=== PATIENT | male | born 1960 | race Caucasian/White ===

== ENCOUNTER → 2017-03-12 | Outpatient (CLI) | payer BC ==
[2017-03-12 13:45] LABS: CH 29.8; CHCM 33.4; HCT 43.4 % (39.0-53.0); HDW 2.64; HGB 14.3 gm/dL (13.0-17.5); MCH 29.5 pg (25.0-35.0); MCHC 32.9 g/dL (31.0-37.0); MCV 89.6 fL (80.0-100.0); Mean Platelet Volume 6.5; RBC 4.84 m/uL (4.30-5.90); RDW 13.3 % (11.5-15.5); WBC 8.5 k/uL (3.8-10.6)
[2017-03-12 14:05] LABS: ALT 46 U/L (21-72); AST 30 U/L (17-59); Alkaline Phosphatase 88 U/L (38-126); Anion Gap 10 mmol/L; Blood Urea Nitrogen 14 mg/dL (9-20); Calcium 9.5 mg/dL (8.4-10.2); Carbon Dioxide 26 mmol/L (22-30); Chloride 107 mmol/L (98-107); Glucose 82 mg/dL (74-99); Non-African American GFR(MDRD) >60 (>60 ml/min/1.73 sqM); Potassium 3.8 mmol/L (3.5-5.1); Sodium 143 mmol/L (137-145); Total Bilirubin 0.5 mg/dL (0.2-1.3); Total Protein 6.4 g/dL (6.3-8.2)
[2017-03-12 15:09] LABS: Erythrocyte Sedimentation Rate 8 mm/hr (0-15)
== END | disposition home or self-care (01) ==
LOC: LABWHC1 13:01
DX: K50.014 Crohn's disease of small intestine with abscess (principal); K50.00 Crohn's disease of small intestine without complications
CPT/HCPCS: 36415; 80053; 82306; 85027; 85652; 86140; 86480

== ENCOUNTER → 2017-04-08 | Outpatient (CLI) | payer BC ==
--- NOTE | 2017-04-08 21:23 | CT ---
EXAMINATION TYPE: CT chest w con DATE OF EXAM: 04/08/2017 COMPARISON: No previous exam available for correlation. HISTORY: Lung nodule. Hx of TB CT DLP: 291.7 mGycm Automated exposure control for dose reduction was used. CONTRAST: CT scan of the chest is performed with IV Contrast, patient injected with 90 mL of Omnipaque 300. FINDINGS: LUNGS: The left lower lobe, axial image 41 shows a soft tissue nodule measuring approximately 5 to 6 mm in size. MEDIASTINUM: There are no greater than 1 cm hilar or mediastinal lymph nodes. Pulmonary artery is dil ated measuring 2.7 cm. There are coronary artery calcifications. No pericardial effusion is seen. AORTA: Aortic root measuring approximately 3.9 cm is borderline aneurysmal. OTHER: Nonobstructive calculus present at the lower pole left kidney measures 7.5 cm. IMPRESSION: Indeterminate left lower lobe pulmonary nodule. Consider pulmonary artery hypertension. Borderline aneurysm aortic root, follow-up recommended. Nonobstructive left nephrolithiasis.
== END | disposition home or self-care (01) ==
LOC: RADCTMAIN 16:15
PROVIDERS: ATTEND Family Medicine
DX: R91.1 Solitary pulmonary nodule (principal); I27.2 Other secondary pulmonary hypertension
CPT/HCPCS: 71260; Q9967

== ENCOUNTER 2017-05-05 10:38 | Day surgery (SDC) | payer BC ==
[2017-05-02 09:22] VITALS: BMI 23.0
[~2017-05-05 10:38] MED LIST: LACTATED RINGERS 1,000 ML IV SCH
[2017-05-05 10:54] VITALS: TEMP 97.2
[2017-05-05] MEDS ORDERED: PROPOFOL 10 MG/ML 20 ML VIAL IV ONE (11:07)
[2017-05-05] MEDS ORDERED: LIDOCAINE 1% INJ 10MG/ML (20 ML MDV) ONE (11:07)
[2017-05-05] MEDS ORDERED: MIDAZOLAM 2 MG/2 ML VIAL ONE (11:07)
--- NOTE | 2017-05-05 11:47 | P.PCN ---
Date of Procedure: 05/05/17 Preoperative Diagnosis: Postoperative Diagnosis: Procedure(s) Performed: Procedure: Colonoscopy and biopsy. Preoperative diagnosis: History of Crohn's disease, S/P ileocecal cecotomy in January 2016. Postoperative diagnosis: Ulcerations at the anastomotic site with some degree of stenosis, colonoscopy, otherwise, within normal limits. Preparation: HalfLytely prep. Sedation: Was provided by anesthesia. Brief clinical history: The patient is a 56-year-old male with history of Crohn' s disease who had ileocecotomy in January 2016 for acute exacerbation and localized microperforation and abscess formation. The patient has been having some abdominal pain and more frequent loose stools. His last visit to the office was in February and he has been taking budesonide 9 mg daily because of pain and diarrhea. His CRP was elevated at 15. This evaluation is in anticipation of initiating biologic therapy. Procedure: With the patient on his left lateral decubitus position and after informed consent and adequate sedation, the perianal area was inspected and it did not show any fissures or fistulas. There were no masses felt on digital rectal examination. The Olympus CFQ 160L video colonoscope was then inserted in the rectum in the usual fashion and advanced to the right colon and the area of anastomosis with the small bowel. There was some degree of stenosis at the anastomotic site and multiple ulcerations. The colon did not show any obvious abnormalities. I obtained biopsies from the ulcerated area and the anastomotic site and I obtained pictures as well as random biopsies from the colon before the endoscope was withdrawn. The patient tolerated the procedure well. Plan: Will await pathology results and make further recommendations. I will keep you updated on his progress. Implants: Indications for Procedure: Operative Findings: Description of Procedure:
[2017-05-05 11:55] VITALS: BP 122/72; PULSE 62; RESP 18
== END 2017-05-05 12:14 | disposition home or self-care (01) ==
LOC: ORWHC2ENDO 10:38
DX: K51.80 Other ulcerative colitis without complications (principal); G62.9 Polyneuropathy, unspecified; M54.5 Low back pain; K91.89 Other postprocedural complications and disorders of digestive system; Y83.2 Surgical operation with anastomosis, bypass or graft as the cause of abnormal reaction of the patient, or of later complication, without mention of misadventure at the time of the procedure; Y73.8 Miscellaneous gastroenterology and urology devices associated with adverse incidents, not elsewhere classified; Z88.1 Allergy status to other antibiotic agents; Z79.899 Other long term (current) drug therapy; Z79.52 Long term (current) use of systemic steroids; Z90.49 Acquired absence of other specified parts of digestive tract
CPT/HCPCS: 88305; 45380; J2250; J2001; J2704

== ENCOUNTER 2017-05-10 18:31 | Observation (INO) | payer BC ==
--- NOTE | 2017-05-10 18:52 | ED ---
General Adult HPI - General Chief complaint: Chest Pain Stated complaint: not feeling well Time Seen by Provider: 05/10/17 18:35 Source: patient, RN notes reviewed Mode of arrival: ambulatory Limitations: no limitations - History of Present Illness Initial comments: Is a 56-year-old male who presents to the emergency department with chest pain that radiates to his neck since Friday. Patient states on Friday he started drinking for a colonoscopy on Friday and then he has chronically Friday without problem but the pain in his chest continues. Patient states it seems to radiate up into his neck and he feels the pain more when he turns his neck. Patient denies any shortness breath or difficulty breathing. Patient states 2 days ago he rode his bike 20 miles. Patient denies any recent fever chills or cough. Patient denies any recent nausea vomiting. Patient denies any headache patient denies numbness weakness. Patient denies any abdominal pain - Related Data Home Medications Medication Instructions Recorded Confirmed Gabapentin [Gabapentin] 900 mg PO HS 06/02/14 05/10/17 Acetaminophen Tab [Tylenol Tab] 1,000 mg PO Q6HR PRN 01/22/16 05/10/17 Budesonide [Budesonide EC] 9 mg PO QAM 05/02/17 05/10/17 Cetirizine HCl [Zyrtec] 10 mg PO DAILY PRN 05/02/17 05/10/17 Ibuprofen 200 mg PO Q6H PRN 05/02/17 05/10/17 Mesalamine [Pentasa] 2,000 mg PO BID 05/02/17 05/10/17 Naproxen Sodium [Aleve] 220 mg PO BID PRN 05/02/17 05/10/17 Allergies Allergy/AdvReac Type Severity Reaction Status Date / Time ciprofloxacin [From Cipro] AdvReac Severe Unknown Verified 05/10/17 18:52 ciprofloxacin HCl AdvReac Severe Unknown Verified 05/10/17 18:52 [From Cipro] levofloxacin [From Levaquin] AdvReac Severe Unknown Verified 05/10/17 18:52 Review of Systems ROS Statement: Those systems with pertinent positive or pertinent negative responses have been documented in the HPI. ROS Other: All systems not noted in ROS Statement are negative. Past Medical History Additional Past Medical History / Comment(s): Chron's dx involving terminal ileum with abscess, heart murmur, lower back pain with L leg sciatica-none since September 2015, lyme's disease, normocytic anemia, peripheral neuropathy History of Any Multi-Drug Resistant Organisms: None Reported Additional Past Surgical History / Comment(s): PICC line L upper arm for ABX, colonoscopies, EGD, vasectomy, L sided wisdom teeth extraction. Past Anesthesia/Blood Transfusion Reactions: No Reported Reaction Past Psychological History: No Psychological Hx Reported Smoking Status: Former smoker Past Alcohol Use History: Occasional, Rare Past Drug Use History: Marijuana - Past Family History Father Additional Family Medical History / Comment(s): Father has Chron's dx. Mother Family Medical History: Diabetes Mellitus, Thyroid Disorder Additional Family Medical History / Comment(s): Mother is pre-diabetic and has heart valve disease,bladder dysplasia General Exam - General Exam Comments Initial Comments: GENERAL: Patient is well-developed and well-nourished. Patient is nontoxic and well- hydrated and is in mild distress. ENT: Neck is soft and supple. No significant lymphadenopathy is noted. Oropharynx is clear. Moist mucous membranes. Neck has full range of motion without eliciting any pain. EYES: The sclera were anicteric and conjunctiva were pink and moist. Extraocular movements were intact and pupils were equal round and reactive to light. Eyelids were unremarkable. PULMONARY: Unlabored respirations. Good breath sounds bilaterally. No audible rales rhonchi or wheezing was noted. I do believe I palpate some tenderness air CARDIOVASCULAR: There is a regular rate and rhythm without any murmurs gallops or rubs. ABDOMEN: Soft and nontender with normal bowel sounds. SKIN: Skin is clear with no lesions or rashes and otherwise unremarkable. NEUROLOGIC: Patient is alert and oriented x3. Cranial nerves II through XII are grossly intact. Motor and sensory are also intact. Normal speech, volume and content. Symmetrical smile. MUSCULOSKELETAL: Normal extremities with adequate strength and full range of motion. No lower extremity swelling or edema. No calf tenderness. LYMPHATICS: No significant lymphadenopathy is noted PSYCHIATRIC: Normal psychiatric evaluation. Limitations: no limitations Course Vital Signs 05/10/17 05/10/17 18:34 19:58 Temperature 97.6 F Pulse Rate 65 61 Respiratory 18 16 Rate Blood Pressure 146/81 127/81 O2 Sat by Pulse 98 99 Oximetry Medical Decision Making - Medical Decision Making EKG shows normal sinus rhythm at 63 bpm VT interval 188 QRSs 84 Q-T intervals 36 QTC is 395. Patient's EKG shows some slight ST segment elevation in precordial leads V4 V5 and V6 looks like early repolarization. CT of the chest and neck showed no acute abnormality was no PE noted. - Lab Data Result diagrams: 05/10/17 19:05 05/10/17 19:05 Lab Results 05/10/17 05/10/17 05/10/17 Range/Units 19:05 19:05 19:05 WBC 7.8 (3.8-10.6) k/uL RBC 5.06 (4.30-5.90) m/uL Hgb 15.3 (13.0-17.5) gm/dL Hct 44.7 (39.0-53.0) % MCV 88.3 (80.0-100.0) fL MCH 30.3 (25.0-35.0) pg MCHC 34.3 (31.0-37.0) g/dL RDW 12.9 (11.5-15.5) % Plt Count 240 (150-450) k/uL Neutrophils % 75 % Lymphocytes % 18 % Monocytes % 4 % Eosinophils % 1 % Basophils % 0 % Neutrophils # 5.9 (1.3-7.7) k/uL Lymphocytes # 1.4 (1.0-4.8) k/uL Monocytes # 0.3 (0-1.0) k/uL Eosinophils # 0.1 (0-0.7) k/uL Basophils # 0.0 (0-0.2) k/uL PT (9.0-12.0) sec INR (<1.2) APTT (22.0-30.0) sec Sodium 143 (137-145) mmol/L Potassium 4.1 (3.5-5.1) mmol/L Chloride 104 (98-107) mmol/L Carbon Dioxide 29 (22-30) mmol/L Anion Gap 10 mmol/L BUN 15 (9-20) mg/dL Creatinine 0.90 (0.66-1.25) mg/dL Est GFR (MDRD) Af Amer >60 (>60 ml/min/1.73 sqM) Est GFR (MDRD) Non-Af >60 (>60 ml/min/1.73 sqM) Glucose 80 (74-99) mg/dL Calcium 9.7 (8.4-10.2) mg/dL Magnesium 2.0 (1.6-2.3) mg/dL Total Bilirubin 0.5 (0.2-1.3) mg/dL AST 22 (17-59) U/L ALT 28 (21-72) U/L Alkaline Phosphatase 84 (38-126) U/L Total Creatine Kinase 38 L (55-170) U/L CK-MB (CK-2) 0.7 (0.0-2.4) ng/mL CK-MB (CK-2) Rel Index 1.8 Troponin I <0.012 (0.000-0.034) ng/mL Total Protein 6.6 (6.3-8.2) g/dL Albumin 4.1 (3.5-5.0) g/dL 05/10/17 Range/Units 19:05 WBC (3.8-10.6) k/uL RBC (4.30-5.90) m/uL Hgb (13.0-17.5) gm/dL Hct (39.0-53.0) % MCV (80.0-100.0) fL MCH (25.0-35.0) pg MCHC (31.0-37.0) g/dL RDW (11.5-15.5) % Plt Count (150-450) k/uL Neutrophils % % Lymphocytes % % Monocytes % % Eosinophils % % Basophils % % Neutrophils # (1.3-7.7) k/uL Lymphocytes # (1.0-4.8) k/uL Monocytes # (0-1.0) k/uL Eosinophils # (0-0.7) k/uL Basophils # (0-0.2) k/uL PT 10.4 (9.0-12.0) sec INR 1.0 (<1.2) APTT 24.1 (22.0-30.0) sec Sodium (137-145) mmol/L Potassium (3.5-5.1) mmol/L Chloride (98-107) mmol/L Carbon Dioxide (22-30) mmol/L Anion Gap mmol/L BUN (9-20) mg/dL Creatinine (0.66-1.25) mg/dL Est GFR (MDRD) Af Amer (>60 ml/min/1.73 sqM) Est GFR (MDRD) Non-Af (>60 ml/min/1.73 sqM) Glucose (74-99) mg/dL Calcium (8.4-10.2) mg/dL Magnesium (1.6-2.3) mg/dL Total Bilirubin (0.2-1.3) mg/dL AST (17-59) U/L ALT (21-72) U/L Alkaline Phosphatase (38-126) U/L Total Creatine Kinase (55-170) U/L CK-MB (CK-2) (0.0-2.4) ng/mL CK-MB (CK-2) Rel Index Troponin I (0.000-0.034) ng/mL Total Protein (6.3-8.2) g/dL Albumin (3.5-5.0) g/dL Disposition Clinical Impression: Chest pain Disposition: ADMITTED IP TO THIS HOSP Referrals: Efra Edwards MD [Primary Care Provider] - 1-2 days Time of Disposition: 21:23
[2017-05-10 19:20] LABS: Basophils % (A) 0 %; CH 29.1; CHCM 33.1; Eosinophils # (A) 0.1 k/uL (0-0.7); Eosinophils % (A) 1 %; HCT 44.7 % (39.0-53.0); HDW 2.52; HGB 15.3 gm/dL (13.0-17.5); Luc # (Auto) 0.14; Luc % (Auto) 2; Lymphocytes # (A) 1.4 k/uL (1.0-4.8); Lymphocytes % (A) 18 %; MCH 30.3 pg (25.0-35.0); MCHC 34.3 g/dL (31.0-37.0); MCV 88.3 fL (80.0-100.0); Mean Platelet Volume 6.9; Monocytes # (A) 0.3 k/uL (0-1.0); Monocytes % (A) 4 %; Neutrophils # (A) 5.9 k/uL (1.3-7.7); Neutrophils % (A) 75 %; RBC 5.06 m/uL (4.30-5.90); RDW 12.9 % (11.5-15.5); WBC 7.8 k/uL (3.8-10.6); WBC (Perox) 7.59
[2017-05-10 19:32] LABS: Partial Thromboplastin Time 24.1 sec (22.0-30.0); Prothrombin Time 10.4 sec (9.0-12.0)
[2017-05-10 19:35] LABS: Creatine Kinase 38 U/L (55-170)
[2017-05-10 19:37] LABS: ALT 28 U/L (21-72); AST 22 U/L (17-59); Alkaline Phosphatase 84 U/L (38-126); Anion Gap 10 mmol/L; Blood Urea Nitrogen 15 mg/dL (9-20); Calcium 9.7 mg/dL (8.4-10.2); Carbon Dioxide 29 mmol/L (22-30); Chloride 104 mmol/L (98-107); Glucose 80 mg/dL (74-99); Non-African American GFR(MDRD) >60 (>60 ml/min/1.73 sqM); Potassium 4.1 mmol/L (3.5-5.1); Sodium 143 mmol/L (137-145); Total Bilirubin 0.5 mg/dL (0.2-1.3); Total Protein 6.6 g/dL (6.3-8.2)
--- NOTE | 2017-05-10 19:37 | XR ---
EXAMINATION TYPE: XR chest 2V DATE OF EXAM: 05/10/2017 COMPARISON: 12/08/[address] 04/08/2017 HISTORY: 56-year-old male with chest pain TECHNIQUE: PA and lateral views FINDINGS: The cardiomediastinal silhouette, aorta, and pulmonary vasculature are within normal limits. Some str ronel atelectasis in the lower lungs. Subtle nodular density at the left lower lung. No consolidation or pleural effusion. IMPRESSION: 1. No acute cardiopulmonary process. 2. A subtle nodular density in the left lower lung. This could represent nipple shadow or the small l eft lower lobe pulmonary nodules seen on 04/08/2017. Recommend five-month follow-up CT chest to reasse ss this nodule.
[2017-05-10 19:48] LABS: Creatine Kinase MB 0.7 ng/mL (0.0-2.4); Troponin I <0.012 ng/mL (0.000-0.034)
--- NOTE | 2017-05-10 19:58 | XR ---
EXAMINATION TYPE: XR soft tissue neck DATE OF EXAM: 05/10/2017 COMPARISON: NONE HISTORY: 56-year-old male with a pain TECHNIQUE: 2 views FINDINGS: The nasopharynx and oropharynx are patent. Epiglottis is normal. No retained radiopaque foreign body seen. No prevertebral soft tissue thickening. No obvious subglottic airway narrowing. IMPRESSION: No specific abnormality identified on the soft tissues of the neck.
[2017-05-10] MEDS ORDERED: RX INFO: IV CONTRAST WAS GIVEN 1 EACH MISC MISCELLANE PRN ×2 (20:03→20:07)
--- NOTE | 2017-05-10 21:06 | CT ---
EXAMINATION TYPE: CT soft tissue neck w con DATE OF EXAM: 05/10/2017 COMPARISON: NONE HISTORY: 56-year-old male with chest pain and neck pain starting 6 days ago when drinking colonoscopy prep. No known injury. Possible subcutaneous air. TECHNIQUE: Contiguous axial scanning of the soft tissues of the neck performed with IV Contrast, yakov ent injected with 100 mL of Omnipaque 300. Coronal/sagittal reconstructions performed. CT DLP: 174.90 mGycm Automated exposure control for dose reduction was used. FINDINGS: Visualized orbits and globes, intracranial structures, and mastoid air cells appear grossly unremarka ble. Cerumen within bilateral external auditory canals and trace mucosal thickening in the ethmoid ai r cells and right maxillary sinus. The nasopharynx is clear. There appears to be hypertrophy of the tubal tonsils in the upper oropharynx, axial image 42. Promine nt dental amalgam artifact limits clear visualization of portions of the oropharynx. The epiglottis and prevertebral soft tissues are normal. There is some asymmetric soft tissue effacing the left piriform sinus, axial image 71. Glottic and melchor bglottic structures as well as the tracheal column appear clear. There is a direct takeoff of the left vertebral artery directly from the aortic arch. The thyroid and submandibular glands as well as the parotid glands appear satisfactory. No subcutaneous air is seen. Solitary mildly enlarged 9 mm right submandibular space lymph node proba lyn reactive. Otherwise, no cervical lymphadenopathy seen. IMPRESSION: 1. THERE IS MILD HYPERTROPHY OF THE TUBAL TONSILS IN THE UPPER PHARYNX . 2. ASYMMETRIC SOFT TISSUE EFFACING THE LEFT PIRIFORM SINUS PROBABLY DUE TO MUCOSAL REDUNDANCY. CONSID ER ENT REFERRAL FOR DIRECT VISUALIZATION IN ORDER TO EXCLUDE A MUCOSAL LESION. 3. NO SUBCUTANEOUS AIR.
--- NOTE | 2017-05-10 21:13 | CT ---
EXAMINATION TYPE: CT angio chest DATE OF EXAM: 05/10/2017 COMPARISON: 04/08/2017 HISTORY: 56-year-old male with chest pain and neck pain starting 6 days ago when drinking colonoscopy prep. No known injury. Possible subcutaneous air. TECHNIQUE: Contiguous axial scanning of the chest performed with IV Contrast, patient injected with 1 00 mL of Omnipaque 300. Coronal/sagittal MIP reconstructions performed. CT DLP: 253.60 mGycm Automated exposure control for dose reduction was used. FINDINGS: The heart is normal size without pericardial effusion. Minimal coronary vascular calcifications are p resent. Ectatic ascending aorta 3.7 cm, unchanged. Variant direct takeoff of the left vertebral artery direct ly from the aortic arch. Satisfactory opacification of the pulmonary arterial system without evidence for pulmonary embolus. No pneumomediastinum or pneumothorax. No subcutaneous emphysema. No thoracic lymphadenopathy. Very mild bronchial wall thickening is noted. 6 mm posterior left lower lobe pulmonary nodule axial image 104 is unchanged from one month prior. De pendent areas of strandy atelectasis. No consolidation or pleural effusion. Visualized upper abdomen shows no gross abnormality. Bones: There is some degenerative vacuum phenomenon in the left sternoclavicular joint. Small superio r endplate Schmorl's nodes within the mid to lower thoracic spine. No osseous destructive process. IMPRESSION: 1. MILD BRONCHIAL WALL THICKENING COULD REPRESENT BRONCHITIS OR CHRONIC ASTHMA. 2. NO EVIDENCE FOR PULMONARY EMBOLUS. 3. THE 6 MM LEFT LOWER LOBE PULMONARY NODULE IS STABLE FOR ONE MONTH. THIS SHOULD BE FOLLOWED TO EXC LUDE A SMALL EARLY NEOPLASM.
[2017-05-10] MEDS ORDERED: NITROGLYCERIN SL TABS 0.4 MG TAB SUBLINGUAL PRN (21:23)
[2017-05-10 22:40] VITALS: BMI 23.0
[2017-05-10] MEDS ORDERED: GABAPENTIN 300 MG CAP PO SCH (23:15)
[2017-05-11] MEDS: NITROGLYCERIN OINT 1 INCH/GM PACKET TOPICAL SCH ×3 (01:37→12:07)
[2017-05-11 01:45] LABS: Creatine Kinase 32 U/L (55-170)
[2017-05-11 01:58] LABS: Creatine Kinase MB 0.6 ng/mL (0.0-2.4); Troponin I <0.012 ng/mL (0.000-0.034)
[2017-05-11 07:08] LABS: Cholesterol 154 mg/dL (<200); HDL Cholesterol 61 mg/dL (40-60)
[2017-05-11 07:15] VITALS: RESP 16
[2017-05-11 07:46] LABS: Creatine Kinase 30 U/L (55-170)
[2017-05-11 07:58] LABS: Creatine Kinase MB 0.4 ng/mL (0.0-2.4); Troponin I <0.012 ng/mL (0.000-0.034)
[2017-05-11] MEDS ORDERED: ASPIRIN 325 MG TAB PO SCH (09:00)
[2017-05-11 11:30] VITALS: BP 119/64; PULSE 67; TEMP 98.8
--- NOTE | 2017-05-11 13:02 | P.CRDCN ---
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 The patient was in his usual state of health until about a few days ago when he started experiencing chest discomfort, as a pressure across the chest, with radiation to the neck as well as to the jaw. The patient was ruled out for acute coronary event. The cardiac enzymes came in to be unremarkable. The EKG shows sinus rhythm with early repolarization. The patient normally is very active and he just was riding his bike for 20 miles without having any chest pain or discomfort. I recommended proceeding with a stress test to rule out any severe underlying CAD. The patient would like to be discharged home. Past Medical History Additional Past Medical History / Comment(s): Chrohn's dx involving terminal ileum with abscess, heart murmur, lower back pain with L leg sciatica-none since September 2015, lyme's disease, normocytic anemia, peripheral neuropathy History of Any Multi-Drug Resistant Organisms: None Reported Additional Past Surgical History / Comment(s): ileocecetomy with sepsis 2015, colonoscopies, EGD, vasectomy, L sided wisdom teeth extraction. Past Anesthesia/Blood Transfusion Reactions: No Reported Reaction Past Psychological History: No Psychological Hx Reported Additional Psychological History / Comment(s): Pt resides with his spouse and 3 daughters ages ranging from 12-17. He has a son in college. Pt is normally very independent. He uses no assistive device. He drives. Local [employer]. No current use of tobacco, alcohol or recreation drug use. No experience. No recent travels. No animal exposures. Smoking Status: Former smoker Past Alcohol Use History: Occasional, Rare Additional Past Alcohol Use History / Comment(s): Pt started smoking as a teen and quit in 1998. Past Drug Use History: Marijuana - Past Family History Father Additional Family Medical History / Comment(s): Father has Chron's dx. Mother Family Medical History: Diabetes Mellitus, Thyroid Disorder Additional Family Medical History / Comment(s): Mother is pre-diabetic and has heart valve disease,bladder dysplasia Medications and Allergies Home Medications Medication Instructions Recorded Confirmed Type Gabapentin [Gabapentin] 900 mg PO HS 06/02/14 05/10/17 History Acetaminophen Tab [Tylenol Tab] 1,000 mg PO Q6HR PRN 01/22/16 05/10/17 History Budesonide [Budesonide EC] 9 mg PO QAM 05/02/17 05/10/17 History Cetirizine HCl [Zyrtec] 10 mg PO DAILY PRN 05/02/17 05/10/17 History Ibuprofen 200 mg PO Q6H PRN 05/02/17 05/10/17 History Mesalamine [Pentasa] 2,000 mg PO BID 05/02/17 05/10/17 History Naproxen Sodium [Aleve] 220 mg PO BID PRN 05/02/17 05/10/17 History Allergies Allergy/AdvReac Type Severity Reaction Status Date / Time ciprofloxacin [From Cipro] AdvReac Severe Unknown Verified 05/10/17 18:52 ciprofloxacin HCl AdvReac Severe Unknown Verified 05/10/17 18:52 [From Cipro] levofloxacin [From Levaquin] AdvReac Severe Unknown Verified 05/10/17 18:52 Physical Exam Vitals: Vital Signs Temp Pulse Pulse Resp BP BP Pulse Ox 05/11/17 11:29 98.8 F 67 16 119/64 96 05/11/17 07:45 95 05/11/17 07:14 97.9 F 53 L 16 127/73 95 05/11/17 04:00 97.9 F 60 18 119/68 96 05/11/17 03:26 61 18 05/10/17 22:48 61 18 05/10/17 22:25 98 F 57 L 18 134/77 95 05/10/17 19:58 61 16 127/81 99 05/10/17 18:34 97.6 F 65 18 146/81 98 Intake and Output 05/10/17 05/11/17 05/11/17 22:59 06:59 14:59 Other: Voiding Method Toilet Toilet Toilet # Voids 3 Weight 68.5 kg - Constitutional General appearance: no acute distress - Respiratory Respiratory: bilateral: CTA - Cardiovascular Rhythm: regular Heart sounds: normal: S1, S2 Results 05/10/17 19:05 05/10/17 19:05 Cardiac Enzymes 05/10/17 05/10/17 05/11/17 Range/Units 19:05 19:05 01:01 AST 22 (17-59) U/L CK-MB (CK-2) 0.7 0.6 (0.0-2.4) ng/mL Troponin I <0.012 <0.012 (0.000-0.034) ng/mL 05/11/17 Range/Units 06:36 AST (17-59) U/L CK-MB (CK-2) 0.4 (0.0-2.4) ng/mL Troponin I <0.012 (0.000-0.034) ng/mL Coagulation 05/10/17 Range/Units 19:05 PT 10.4 (9.0-12.0) sec APTT 24.1 (22.0-30.0) sec Lipids 05/11/17 Range/Units 06:36 Triglycerides 173 H (<150) mg/dL Cholesterol 154 (<200) mg/dL HDL Cholesterol 61 H (40-60) mg/dL CBC 05/10/17 Range/Units 19:05 WBC 7.8 (3.8-10.6) k/uL RBC 5.06 (4.30-5.90) m/uL Hgb 15.3 (13.0-17.5) gm/dL Hct 44.7 (39.0-53.0) % Plt Count 240 (150-450) k/uL Comprehensive Metabolic Panel 05/10/17 Range/Units 19:05 Sodium 143 (137-145) mmol/L Potassium 4.1 (3.5-5.1) mmol/L Chloride 104 (98-107) mmol/L Carbon Dioxide 29 (22-30) mmol/L BUN 15 (9-20) mg/dL Creatinine 0.90 (0.66-1.25) mg/dL Glucose 80 (74-99) mg/dL Calcium 9.7 (8.4-10.2) mg/dL AST 22 (17-59) U/L ALT 28 (21-72) U/L Alkaline Phosphatase 84 (38-126) U/L Total Protein 6.6 (6.3-8.2) g/dL Albumin 4.1 (3.5-5.0) g/dL Current Medications Generic Name Dose Route Start Last Admin Trade Name Freq PRN Reason Stop Dose Admin Aspirin 325 mg 05/11/17 09:00 05/11/17 12:07 Aspirin PO Not Given DAILY ANA CRISTINA Gabapentin 900 mg 05/10/17 23:15 05/11/17 01:55 Neurontin PO 900 mg HS ANA CRISTINA Administration Miscellaneous Information 1 each 05/10/17 20:03 Rx Info: Iv Contrast Was Given MISCELLANE 05/12/17 20:03 DAILY PRN Per Protocol Miscellaneous Information 1 each 05/10/17 20:07 Rx Info: Iv Contrast Was Given MISCELLANE 05/12/17 20:07 DAILY PRN Per Protocol Nitroglycerin 1 inch 05/11/17 00:00 05/11/17 12:07 Nitro-Bid Oint TOPICAL Not Given Q6HR [facility] Nitroglycerin 0.4 mg 05/10/17 21:23 Nitrostat SUBLINGUAL Q5M PRN Chest Pain Intake and Output 05/10/17 05/11/17 05/11/17 22:59 06:59 14:59 Other: Voiding Method Toilet Toilet Toilet # Voids 3 Weight 68.5 kg 05/10/17 19:05 05/10/17 19:05 Assessment and Plan Plan: This is a pleasant 56-year-old gentleman who presented to the hospital was atypical chest discomfort. Normally the patient is very active and with exertion he does not have any chest pain or discomfort. He was ruled out for acute coronary event. I recommended proceeding with a stress test but the patient would like to be discharged home. He will be scheduled to have a stress test as an outpatient in the next few days.
--- NOTE | 2017-05-11 15:40 | P.HPIM ---
History of Present Illness -year-old man came in with Complaints of constant chest pain has been going on for last few days appears to be musculoskeletal. It appears to worsen with neck movement patient back pain is predominantly in the neck area appears to have some neck stiffness. Patient also appears to have sore throat with redness in the throat area. CAT scan of the soft tissues of the neck did show some soft tissue swelling. On exam patient does have redness in the posterior pharyngeal wall with mildly enlarged tonsils. Mostly ALLERGIC or viral in nature. Patient denied any cough at this time. Patient denied any fever chills patient the pain in the neck area is about 5 or 10 and severe. Patient was admitted for rule out acute coronary syndromes was a valid by cardiology EKGs were negative and troponins were negative. Patient was cleared from cardiac perspective and follow up as an outpatient for outpatient stress test. Patient had a CT angios the neck which did not show any pulmonary embolism. Patient had a stable 6 mm pulmonary nodule which need to be followed. It is stable compared to the chest CT that was done about a month ago. Patient was made aware of these findings. Patient does have some bronchial thickening. Review of Systems REVIEW OF SYSTEMS: CONSTITUTIONAL: No fever, no malaise, no fatigue. HEENT: No recent visual problems or hearing problems. Does have sore throat and some stiffness in the neck. CARDIOVASCULAR: No, orthopnea, PND, no palpitations, no syncope. PULMONARY: No shortness of breath, no cough, no hemoptysis. GASTROINTESTINAL: No diarrhea, no nausea, no vomiting, no abdominal pain. Normoactive bowel sounds. NEUROLOGICAL: No headaches, no weakness, no numbness. HEMATOLOGICAL: Denies any bleeding or petechiae. GENITOURINARY: Denies any burning micturition, frequency, or urgency. MUSCULOSKELETAL/RHEUMATOLOGICAL: Denies any joint pain, swelling, or any muscle pain. ENDOCRINE: Denies any polyuria or polydipsia. The rest of the 14-point review of systems is negative. Past Medical History Additional Past Medical History / Comment(s): Chrohn's dx involving terminal ileum with abscess, heart murmur, lower back pain with L leg sciatica-none since September 2015, lyme's disease, normocytic anemia, peripheral neuropathy History of Any Multi-Drug Resistant Organisms: None Reported Additional Past Surgical History / Comment(s): ileocecetomy with sepsis 2016, colonoscopies, EGD, vasectomy, L sided wisdom teeth extraction. Past Anesthesia/Blood Transfusion Reactions: No Reported Reaction Past Psychological History: No Psychological Hx Reported Additional Psychological History / Comment(s): Pt resides with his spouse and 3 daughters ages ranging from 12-17. He has a son in college. Pt is normally very independent. He uses no assistive device. He drives. Local college sports assistant. No current use of tobacco, alcohol or recreation drug use. No experience. No recent travels. No animal exposures. Smoking Status: Former smoker Past Alcohol Use History: Occasional, Rare Additional Past Alcohol Use History / Comment(s): Pt started smoking as a teen and quit in 1998. Past Drug Use History: Marijuana - Past Family History Father Additional Family Medical History / Comment(s): Father has Chron's dx. Mother Family Medical History: Diabetes Mellitus, Thyroid Disorder Additional Family Medical History / Comment(s): Mother is pre-diabetic and has heart valve disease,bladder dysplasia Medications and Allergies Home Medications Medication Instructions Recorded Confirmed Type Gabapentin [Gabapentin] 900 mg PO HS 06/02/14 05/10/17 History Acetaminophen Tab [Tylenol Tab] 1,000 mg PO Q6HR PRN 01/22/16 05/10/17 History Budesonide [Budesonide EC] 9 mg PO QAM 05/02/17 05/10/17 History Cetirizine HCl [Zyrtec] 10 mg PO DAILY PRN 05/02/17 05/10/17 History Ibuprofen 200 mg PO Q6H PRN 05/02/17 05/10/17 History Mesalamine [Pentasa] 2,000 mg PO BID 05/02/17 05/10/17 History Naproxen Sodium [Aleve] 220 mg PO BID PRN 05/02/17 05/10/17 History Allergies Allergy/AdvReac Type Severity Reaction Status Date / Time ciprofloxacin [From Cipro] AdvReac Severe Unknown Verified 05/10/17 18:52 ciprofloxacin HCl AdvReac Severe Unknown Verified 05/10/17 18:52 [From Cipro] levofloxacin [From Levaquin] AdvReac Severe Unknown Verified 05/10/17 18:52 Physical Exam Vitals: Vital Signs Temp Pulse Pulse Resp BP BP Pulse Ox 05/11/17 11:29 98.8 F 67 16 119/64 96 08/13/17 07:45 95 05/11/17 07:14 97.9 F 53 L 16 127/73 95 05/11/17 04:00 97.9 F 60 18 119/68 96 05/11/17 03:26 61 18 05/10/17 22:48 61 18 05/10/17 22:25 98 F 57 L 18 134/77 95 05/10/17 19:58 61 16 127/81 99 05/10/17 18:34 97.6 F 65 18 146/81 98 Intake and Output 05/11/17 05/11/17 05/11/17 06:59 14:59 22:59 Intake Total 236 Balance 236 Intake: Oral 236 Other: Voiding Method Toilet Toilet # Voids 3 PHYSICAL EXAMINATION: GENERAL: The patient is alert and oriented x3, not in any acute distress. Well developed, well nourished. HEENT: Pupils are round and equally reacting to light. EOMI. No scleral icterus. No conjunctival pallor. Normocephalic, atraumatic. Patient does have posterior pharyngeal erythema. No thyromegaly. CARDIOVASCULAR: S1 and S2 present. No murmurs, rubs, or gallops. PULMONARY: Chest is clear to auscultation, no wheezing or crackles. ABDOMEN: Soft, nontender, nondistended, normoactive bowel sounds. No palpable organomegaly. MUSCULOSKELETAL: No joint swelling or deformity. EXTREMITIES: No cyanosis, clubbing, or pedal edema. NEUROLOGICAL: Gross neurological examination did not reveal any focal deficits. SKIN: No rashes. Results CBC & Chem 7: 05/10/17 19:05 05/10/17 19:05 Labs: Abnormal Lab Results - Last 24 Hours (Table) 05/10/17 05/11/17 05/11/17 Range/Units 19:05 01:01 06:36 Total Creatine Kinase 38 L 32 L 30 L (55-170) U/L Triglycerides (<150) mg/dL HDL Cholesterol (40-60) mg/dL 05/11/17 Range/Units 06:36 Total Creatine Kinase (55-170) U/L Triglycerides 173 H (<150) mg/dL HDL Cholesterol 61 H (40-60) mg/dL Thrombosis Risk Factor Assmnt - Choose All That Apply Each Factor Represents 1 point: Age 41-60 years Thrombosis Risk Factor Assessment Total Risk Factor Score: 1 Thrombosis Risk Factor Assessment Level: Low Risk Assessment and Plan Plan: Chest pain: Appears to be musculoskeletal in nature coming from the neck area. Ruled out acute coronary syndromes and unstable angina patient will follow with Dr. Bustamante for outpatient stress test. #2 pharyngitis viral or ALLERGIC in nature. If patient can he is to have the symptoms patient need antibiotics at that time. #3 musculoskeletal neck pain and stiffness: Heart or cold compresses. And it nonsteroidal anti-inflammatories as as necessary. #4 history of Crohn's disease not in acute exacerbation at this time.
--- NOTE | 2017-05-11 15:41 | P.DS ---
Providers Date of admission: 05/10/17 21:23 Attending physician: Devaughn Loo Consults: 05/10/17 21:24 Consult Physician Urgent Consulting Provider: [facility] Consult Reason/Comments: Chest pain Do you want consulting provider notified?: Yes Primary care physician: Efra Edwards Hospital Course: Refer to HPI Plan - Discharge Summary New Discharge Prescriptions: No Action Gabapentin [Gabapentin] 900 mg PO HS Acetaminophen Tab [Tylenol Tab] 1,000 mg PO Q6HR PRN PRN Reason: Pain Mesalamine [Pentasa] 2,000 mg PO BID Cetirizine HCl [Zyrtec] 10 mg PO DAILY PRN PRN Reason: Allergy Symptoms Budesonide [Budesonide EC] 9 mg PO QAM Naproxen Sodium [Aleve] 220 mg PO BID PRN PRN Reason: Pain Ibuprofen 200 mg PO Q6H PRN PRN Reason: Pain Discharge Medication List Gabapentin [Gabapentin] 900 mg PO HS 06/02/14 [History] Acetaminophen Tab [Tylenol Tab] 1,000 mg PO Q6HR PRN 01/22/16 [History] Budesonide [Budesonide EC] 9 mg PO QAM 05/02/17 [History] Cetirizine HCl [Zyrtec] 10 mg PO DAILY PRN 05/02/17 [History] Ibuprofen 200 mg PO Q6H PRN 05/02/17 [History] Mesalamine [Pentasa] 2,000 mg PO BID 05/02/17 [History] Naproxen Sodium [Aleve] 220 mg PO BID PRN 05/02/17 [History] Follow up Appointment(s)/Referral(s): Toribio Bustamante MD [STAFF PHYSICIAN] - 1 Week (Message left with office to call you to schedule an appointment with Dr. Bustamante) Ronni Bell DO [Doctor of Osteopathic Medicine] - 1 Week (Referral for ENT services. Patient to call office to make an appointment) Efra Edwards MD [Primary Care Provider] - 3 Days Sumaya Nicole MD [STAFF PHYSICIAN] - 1 Week Patient Instructions/Handouts: Chest Pain (GEN) Discharge Disposition: HOME SELF-CARE
== END 2017-05-11 14:11 | disposition home or self-care (01) ==
LOC: EC 18:31 → 3OBS 21:23
PROVIDERS: ADMIT Hospitalist; ATTEND Hospitalist
DX: R07.89 Other chest pain (principal); J02.9 Acute pharyngitis, unspecified; M54.2 Cervicalgia; K50.00 Crohn's disease of small intestine without complications; G62.9 Polyneuropathy, unspecified; Z79.899 Other long term (current) drug therapy; Z79.1 Long term (current) use of non-steroidal anti-inflammatories (NSAID); Z79.52 Long term (current) use of systemic steroids; Z88.1 Allergy status to other antibiotic agents; Z87.891 Personal history of nicotine dependence; Z83.3 Family history of diabetes mellitus
CPT/HCPCS: 99285; 36415; 94760; 93005; 80061; 80053; 82550 ×2; 82553 ×2; 83735; 84484 ×2; 85025; 85610; 85730; 70360; 71020; 70491; 71275; G0378 ×2; Q9967

== ENCOUNTER → 2018-02-05 | Outpatient (CLI) | payer BC ==
[2018-02-05 09:42] LABS: HCT 40.3 % (39.0-53.0); HGB 13.7 gm/dL (13.0-17.5); MCH 29.3 pg (25.0-35.0); MCHC 34.1 g/dL (31.0-37.0); MCV 85.9 fL (80.0-100.0); Mean Platelet Volume 6.6; Platelet Count 227 k/uL (150-450); RBC 4.69 m/uL (4.30-5.90); RDW 13.4 % (11.5-15.5); WBC 7.2 k/uL (3.8-10.6)
[2018-02-05 09:58] LABS: ALT 19 U/L (21-72); AST 21 U/L (17-59); Albumin 3.8 g/dL (3.5-5.0); Alkaline Phosphatase 77 U/L (38-126); Anion Gap 13 mmol/L; Blood Urea Nitrogen 18 mg/dL (9-20); C Reactive Protein 11.7 mg/L (<10.0); Calcium 9.5 mg/dL (8.4-10.2); Carbon Dioxide 25 mmol/L (22-30); Chloride 109 mmol/L (98-107); Glucose 68 mg/dL (74-99); Potassium 4.2 mmol/L (3.5-5.1); Sodium 147 mmol/L (137-145); Total Bilirubin 0.4 mg/dL (0.2-1.3); Total Protein 6.1 g/dL (6.3-8.2)
[2018-02-05 10:27] LABS: Erythrocyte Sedimentation Rate 9 mm/hr (0-15)
== END | disposition home or self-care (01) ==
LOC: LABWHC1 08:52
DX: K50.90 Crohn's disease, unspecified, without complications (principal)
CPT/HCPCS: 36415; 80053; 82306; 85027; 85652; 86140

== ENCOUNTER → 2018-04-16 | Outpatient (CLI) | payer BC ==
[2018-04-16 10:26] LABS: HCT 45.7 % (39.0-53.0); HGB 15.2 gm/dL (13.0-17.5); MCH 29.7 pg (25.0-35.0); MCHC 33.2 g/dL (31.0-37.0); MCV 89.3 fL (80.0-100.0); Mean Platelet Volume 6.8; Platelet Count 237 k/uL (150-450); RBC 5.12 m/uL (4.30-5.90); RDW 13.4 % (11.5-15.5); WBC 6.8 k/uL (3.8-10.6)
[2018-04-16 10:45] LABS: ALT 30 U/L (21-72); AST 23 U/L (17-59); Albumin 4.2 g/dL (3.5-5.0); Alkaline Phosphatase 63 U/L (38-126); Anion Gap 6 mmol/L; Blood Urea Nitrogen 20 mg/dL (9-20); C Reactive Protein <5.0 mg/L (<10.0); Calcium 9.6 mg/dL (8.4-10.2); Carbon Dioxide 30 mmol/L (22-30); Chloride 107 mmol/L (98-107); Glucose 90 mg/dL (74-99); Potassium 4.6 mmol/L (3.5-5.1); Sodium 143 mmol/L (137-145); Total Bilirubin 0.6 mg/dL (0.2-1.3); Total Protein 6.5 g/dL (6.3-8.2)
[2018-04-16 14:10] LABS: Erythrocyte Sedimentation Rate 2 mm/hr (0-15)
[2018-04-16 16:26] LABS: Vitamin D 25 Hydroxy 43.2 ng/mL (30.0-100.0)
[2018-04-16 16:32] LABS: Folate, Serum 12.4 ng/mL
== END | disposition home or self-care (01) ==
LOC: LABWHC1 09:42
DX: K50.90 Crohn's disease, unspecified, without complications (principal)
CPT/HCPCS: 36415; 80053; 82306; 82607; 82746; 85027; 85652; 86140

== ENCOUNTER → 2018-11-05 | Outpatient (CLI) | payer BC ==
[2018-11-05 11:02] LABS: HCT 43.7 % (39.0-53.0); HGB 14.5 gm/dL (13.0-17.5); MCH 30.1 pg (25.0-35.0); MCHC 33.3 g/dL (31.0-37.0); MCV 90.4 fL (80.0-100.0); Mean Platelet Volume 6.5; Platelet Count 259 k/uL (150-450); RBC 4.83 m/uL (4.30-5.90); RDW 13.1 % (11.5-15.5); WBC 8.2 k/uL (3.8-10.6)
[2018-11-05 12:56] LABS: Erythrocyte Sedimentation Rate 2 mm/hr (0-15)
[2018-11-05 16:36] LABS: ALT 28 U/L (10-49); AST 22 U/L (14-35); Albumin/Globulin Ratio 2.37 (1.60-3.17); Alkaline Phosphatase 75 U/L (41-126); C Reactive Protein <0.4 mg/dL (0.0-0.8); Calcium 9.2 mg/dL (8.7-10.3); Carbon Dioxide 27.1 mmol/L (21.6-31.8); Chloride 109 mmol/L (96-109); Globulin 1.9 g/dL (1.6-3.3); Glucose 89 mg/dL (70-110); Potassium 3.8 mmol/L (3.5-5.5); Sodium 144 mmol/L (135-145); Total Bilirubin 0.6 mg/dL (0.3-1.2); Total Protein 6.4 g/dL (6.2-8.2)
[2018-11-05 16:37] LABS: Folate, Serum >24.0 ng/mL; Vitamin D 25 Hydroxy 34.2 ng/mL (30.0-100.0)
== END | disposition home or self-care (01) ==
LOC: LABWHC1 09:54
DX: K50.90 Crohn's disease, unspecified, without complications (principal)
CPT/HCPCS: 36415; 80053; 82306; 82607; 82746; 85027; 85652; 86140

== ENCOUNTER → 2018-11-16 | Outpatient (CLI) | payer BC | END | disposition home or self-care (01) | LOC: LABWHC1 11:01 | DX: K50.90 Crohn's disease, unspecified, without complications (principal) | CPT/HCPCS: 83993; 87045; 87046; 87324 ==

== ENCOUNTER → 2019-07-28 | Outpatient (CLI) | payer BC ==
--- NOTE | 2019-07-28 14:39 | NM ---
EXAMINATION TYPE: NM bone scan whole body DATE OF EXAM: 07/28/2019 COMPARISON: NONE HISTORY: Low back pain Delayed whole-body scanning was performed following the injection of 24.8 mCi Tc 99m MDP. Images acq uired 3.5 hours post injection. FINDINGS: Faint abnormal uptake throughout the thoracic spine and lower lumbar spine. Slightly asymmetric lucen t appearance of the right femoral neck. IMPRESSION: 1. No diagnostic evidence of metastasis. Slight heterogeneity of the right femoral neck and proximal diaphysis of the right femur for which x-ray correlation is recommended. 2. Findings involving the thoracic and lower lumbar spine likely degenerative.
== END | disposition home or self-care (01) ==
LOC: RADNMMAIN 10:20
PROVIDERS: ATTEND Family Medicine
DX: M54.5 Low back pain (principal)
CPT/HCPCS: 78306; A9503

== ENCOUNTER → 2019-08-02 | Outpatient (CLI) | payer BC ==
--- NOTE | 2019-08-02 10:19 | US ---
EXAMINATION TYPE: US kidneys/renal and bladder DATE OF EXAM: 08/02/2019 COMPARISON: NONE CLINICAL HISTORY: D49.519 Neoplasm of unspecified behavior of unspec. EXAM MEASUREMENTS: Right Kidney: 10.4 x 6.6 x 5.5 cm Left Kidney: 10.4 x 6.1 x 4.9 cm Right Kidney: inferior cyst noted measuring 2.3 x 2.0 x 1.9cm, 2 echogenic foci measuring 0.4 x 0.2 x 0.6cm and 0.3 x 0.3 x 0.5cm Left Kidney:echogenic foci measuring 0.4 x 0.4 x 0.2cm Bladder: wnl IMPRESSION: 1. Nonobstructing bilateral renal calculi. 2. Right renal simple cyst.
== END | disposition home or self-care (01) ==
LOC: RADUSMAIN 08:54
PROVIDERS: ATTEND Family Medicine
DX: N20.0 Calculus of kidney (principal); N28.1 Cyst of kidney, acquired
CPT/HCPCS: 76770

== ENCOUNTER 2019-12-01 13:28 | Emergency (ER) | payer BC ==
--- NOTE | 2019-12-01 13:32 | US ---
EXAMINATION TYPE: US kidneys/renal and bladder DATE OF EXAM: 12/01/2019 COMPARISON: US 08/02/2019 CLINICAL HISTORY: N20.2 Calculus of kidney and ureter. EXAM MEASUREMENTS: Right Kidney: 9.9 x 6.0 x 5.5 cm Left Kidney: 9.5 x 4.6 x 4.4 cm Right Kidney: Hydronephrosis visualized. Echogenic foci visualized measuring 0.6 cm. Simple cyst visu alized measuring 2.1 x 1.7 x 1.4 cm stable from prior exam. Left Kidney: No hydronephrosis or nephrolithiasis Bladder: wnl Bilateral Jets seen: No IMPRESSION: Mild to moderate right hydronephrosis with 6 mm right renal calculus. Ureteral calculus would be in t he differential diagnosis.
[2019-12-01 13:34] VITALS: RESP 18
[2019-12-01 14:17] LABS: Basophils # (A) 0.1 k/uL (0-0.2); Basophils % (A) 1 %; Eosinophils # (A) 0.2 k/uL (0-0.7); Eosinophils % (A) 2 %; HCT 50.1 % (39.0-53.0); HGB 16.4 gm/dL (13.0-17.5); Lymphocytes # (A) 2.7 k/uL (1.0-4.8); Lymphocytes % (A) 28 %; MCH 29.6 pg (25.0-35.0); MCHC 32.8 g/dL (31.0-37.0); MCV 90.3 fL (80.0-100.0); Mean Platelet Volume 6.8; Monocytes # (A) 0.5 k/uL (0-1.0); Monocytes % (A) 5 %; Neutrophils # (A) 6.1 k/uL (1.3-7.7); Neutrophils % (A) 63 %; Platelet Count 253 k/uL (150-450); RBC 5.55 m/uL (4.30-5.90); RDW 12.3 % (11.5-15.5); WBC 9.7 k/uL (3.8-10.6)
[2019-12-01 14:19] LABS: Appearance,Urine Clear (Clear); Bilirubin,Urine Negative (Negative); Blood,Urine Moderate (Negative); Color,Urine Light Yellow; Glucose,Urine (UA) Negative (Negative); Ketones,Urine Negative (Negative); Leukocyte Esterase,Urine Negative (Negative); Mucus,Urine Rare /hpf; Nitrite,Urine Negative (Negative); Protein,Urine Negative (Negative); RBC,Urine 33 /hpf (0-5); Urobilinogen,Urine <2.0 mg/dL (<2.0); WBC,Urine 1 /hpf (0-5)
[2019-12-01 14:31] LABS: ALT 25 U/L (4-49); AST 32 U/L (17-59); African American GFR (CKD) >90 (>60 ml/min/1.73 sqM); Alkaline Phosphatase 68 U/L (38-126); Anion Gap 10 mmol/L; Blood Urea Nitrogen 13 mg/dL (9-20); Calcium 10.1 mg/dL (8.4-10.2); Carbon Dioxide 27 mmol/L (22-30); Chloride 103 mmol/L (98-107); Glucose 98 mg/dL (74-99); Non-African American GFR(CKD) 86 (>60 ml/min/1.73 sqM); Potassium 4.3 mmol/L (3.5-5.1); Sodium 140 mmol/L (137-145); Total Bilirubin 1.5 mg/dL (0.2-1.3)
[2019-12-01] MEDS ORDERED: KETOROLAC 30 MG/ML 1 ML VIAL IVP STA (14:40)
[2019-12-01] MEDS ORDERED: SODIUM CHLORIDE 0.9% 1,000 ML IV ONE (15:03)
[2019-12-01] MEDS ORDERED: ONDANSETRON 4 MG/2 ML VIAL IVP STA (15:03)
[2019-12-01] MEDS ORDERED: HYDROcodone/APAP 7.5-325MG 1 EACH TAB PO ONE (16:03)
--- NOTE | 2019-12-01 16:32 | ED ---
Abdominal Pain HPI - General Chief Complaint: Abdominal Pain Stated Complaint: Kidney Stones Time Seen by Provider: 12/01/19 14:39 Source: patient Mode of arrival: ambulatory Limitations: no limitations - History of Present Illness Initial Comments: 59-year-old male with history of kidney stones presenting today for chief complaint of right flank pain. Patient states that he has history of kidney stones and mild right flank pain for the past 24-48 hours hours. States last night intensified he states he was nauseous. Patient states he noted hematuria. Patient was seen in outpatient and prescribed Flomax. Patient stated outpatient Ultram today revealing findings suspicious for urolithiasis. No obvious obstructing stone. Patient is mild to moderate hydronephrosis. Patient's creatinine within normal limits patient is a not have any significant leukocytosis. No signs in the urinalysis concerning for infection or septic stone at this time. Patient is afebrile well-appearing nontoxic pain control with Toradol and Thompson. This time I feel patient is safe for discharge with outpatient neurology follow-up and continuation of Flomax. Discussed the case with any provider reviewing imaging studies with Dr. Hardin who is agreeable to this care plan. - Related Data Home Medications Medication Instructions Recorded Confirmed Gabapentin 900 mg PO HS 06/02/14 05/10/17 Acetaminophen Tab [Tylenol Tab] 1,000 mg PO Q6HR PRN 01/22/16 05/10/17 Budesonide [Budesonide EC] 9 mg PO QAM 05/02/17 05/10/17 Cetirizine HCl [Zyrtec] 10 mg PO DAILY PRN 05/02/17 05/10/17 Ibuprofen 200 mg PO Q6H PRN 05/02/17 05/10/17 Mesalamine [Pentasa] 2,000 mg PO BID 05/02/17 05/10/17 Naproxen Sodium [Aleve] 220 mg PO BID PRN 05/02/17 05/10/17 Allergies Allergy/AdvReac Type Severity Reaction Status Date / Time ciprofloxacin [From Cipro] AdvReac Severe Unknown Verified 12/01/19 13:34 ciprofloxacin HCl AdvReac Severe Unknown Verified 12/01/19 13:34 [From Cipro] levofloxacin [From Levaquin] AdvReac Severe Unknown Verified 12/01/19 13:34 Review of Systems ROS Statement: Those systems with pertinent positive or pertinent negative responses have been documented in the HPI. ROS Other: All systems not noted in ROS Statement are negative. Past Medical History Additional Past Medical History / Comment(s): Chrohn's dx involving terminal ileum with abscess, heart murmur, lower back pain with L leg sciatica-none since September 2015, lyme's disease, normocytic anemia, peripheral neuropathy, renal stones, History of Any Multi-Drug Resistant Organisms: None Reported Additional Past Surgical History / Comment(s): ileocecetomy with sepsis 2016, colonoscopies, EGD, vasectomy, L sided wisdom teeth extraction. right shoulder, Past Anesthesia/Blood Transfusion Reactions: No Reported Reaction Past Psychological History: No Psychological Hx Reported Smoking Status: Former smoker Past Alcohol Use History: Rare Past Drug Use History: Marijuana - Past Family History Father Additional Family Medical History / Comment(s): Father has Chron's dx. Mother Family Medical History: Diabetes Mellitus, Thyroid Disorder Additional Family Medical History / Comment(s): Mother is pre-diabetic and has heart valve disease,bladder dysplasia General Exam Limitations: no limitations Course Vital Signs 12/01/19 12/01/19 13:30 16:33 Temperature 97.3 F L 97.4 F L Pulse Rate 85 74 Respiratory 18 18 Rate Blood Pressure 157/88 126/84 O2 Sat by Pulse 97 98 Oximetry Medical Decision Making - Lab Data Result diagrams: 12/01/19 14:00 12/01/19 14:00 Lab Results 12/01/19 12/01/19 12/01/19 Range/Units 13:50 14:00 14:00 WBC 9.7 (3.8-10.6) k/uL RBC 5.55 (4.30-5.90) m/uL Hgb 16.4 (13.0-17.5) gm/dL Hct 50.1 (39.0-53.0) % MCV 90.3 (80.0-100.0) fL MCH 29.6 (25.0-35.0) pg MCHC 32.8 (31.0-37.0) g/dL RDW 12.3 (11.5-15.5) % Plt Count 253 (150-450) k/uL Neutrophils % 63 % Lymphocytes % 28 % Monocytes % 5 % Eosinophils % 2 % Basophils % 1 % Neutrophils # 6.1 (1.3-7.7) k/uL Lymphocytes # 2.7 (1.0-4.8) k/uL Monocytes # 0.5 (0-1.0) k/uL Eosinophils # 0.2 (0-0.7) k/uL Basophils # 0.1 (0-0.2) k/uL Sodium 140 (137-145) mmol/L Potassium 4.3 (3.5-5.1) mmol/L Chloride 103 (98-107) mmol/L Carbon Dioxide 27 (22-30) mmol/L Anion Gap 10 mmol/L BUN 13 (9-20) mg/dL Creatinine 0.97 (0.66-1.25) mg/dL Est GFR (CKD-EPI)AfAm >90 (>60 ml/min/1.73 sqM) Est GFR (CKD-EPI)NonAf 86 (>60 ml/min/1.73 sqM) Glucose 98 (74-99) mg/dL Calcium 10.1 (8.4-10.2) mg/dL Total Bilirubin 1.5 H (0.2-1.3) mg/dL AST 32 (17-59) U/L ALT 25 (4-49) U/L Alkaline Phosphatase 68 (38-126) U/L C-Reactive Protein (<10.0) mg/L Total Protein 8.0 (6.3-8.2) g/dL Albumin 5.0 (3.5-5.0) g/dL Urine Color Light Yellow Urine Appearance Clear (Clear) Urine pH 5.0 (5.0-8.0) Ur Specific [place] 1.010 (1.001-1.035) Urine Protein Negative (Negative) Urine Glucose (UA) Negative (Negative) Urine Ketones Negative (Negative) Urine Blood Moderate H (Negative) Urine Nitrite Negative (Negative) Urine Bilirubin Negative (Negative) Urine Urobilinogen <2.0 (<2.0) mg/dL Ur Leukocyte Esterase Negative (Negative) Urine RBC 33 H (0-5) /hpf Urine WBC 1 (0-5) /hpf Urine Mucus Rare H (None) /hpf 12/01/19 Range/Units 15:00 WBC (3.8-10.6) k/uL RBC (4.30-5.90) m/uL Hgb (13.0-17.5) gm/dL Hct (39.0-53.0) % MCV (80.0-100.0) fL MCH (25.0-35.0) pg MCHC (31.0-37.0) g/dL RDW (11.5-15.5) % Plt Count (150-450) k/uL Neutrophils % % Lymphocytes % % Monocytes % % Eosinophils % % Basophils % % Neutrophils # (1.3-7.7) k/uL Lymphocytes # (1.0-4.8) k/uL Monocytes # (0-1.0) k/uL Eosinophils # (0-0.7) k/uL Basophils # (0-0.2) k/uL Sodium (137-145) mmol/L Potassium (3.5-5.1) mmol/L Chloride (98-107) mmol/L Carbon Dioxide (22-30) mmol/L Anion Gap mmol/L BUN (9-20) mg/dL Creatinine (0.66-1.25) mg/dL Est GFR (CKD-EPI)AfAm (>60 ml/min/1.73 sqM) Est GFR (CKD-EPI)NonAf (>60 ml/min/1.73 sqM) Glucose (74-99) mg/dL Calcium (8.4-10.2) mg/dL Total Bilirubin (0.2-1.3) mg/dL AST (17-59) U/L ALT (4-49) U/L Alkaline Phosphatase (38-126) U/L C-Reactive Protein 6.9 (<10.0) mg/L Total Protein (6.3-8.2) g/dL Albumin (3.5-5.0) g/dL Urine Color Urine Appearance (Clear) Urine pH (5.0-8.0) Ur Specific [place] (1.001-1.035) Urine Protein (Negative) Urine Glucose (UA) (Negative) Urine Ketones (Negative) Urine Blood (Negative) Urine Nitrite (Negative) Urine Bilirubin (Negative) Urine Urobilinogen (<2.0) mg/dL Ur Leukocyte Esterase (Negative) Urine RBC (0-5) /hpf Urine WBC (0-5) /hpf Urine Mucus (None) /hpf Disposition Clinical Impression: Hematuria, Nephrolithiasis, Right flank pain Disposition: HOME SELF-CARE Condition: Good Instructions (If sedation given, give patient instructions): Kidney Stones (ED) Additional Instructions: Please use medication as discussed. Please follow-up with family doctor in the next 2 days, urology in the next 2-3 days. Please return to emergency room if the symptoms increase or worsen or for any other concerns. Is patient prescribed a controlled substance at d/c from ED?: No Referrals: Efra Edwards MD [Primary Care Provider] - 1-2 days Vinod Taveras MD [STAFF PHYSICIAN] - 1-2 days Time of Disposition: 16:31
[2019-12-01 16:34] VITALS: BP 126/84; PULSE 74; TEMP 97.4
== END 2019-12-01 16:59 | disposition home or self-care (01) ==
LOC: EC 13:28
DX: N20.0 Calculus of kidney (principal); G62.9 Polyneuropathy, unspecified; K50.014 Crohn's disease of small intestine with abscess; Z79.899 Other long term (current) drug therapy; Z88.1 Allergy status to other antibiotic agents; Z86.19 Personal history of other infectious and parasitic diseases; Z87.891 Personal history of nicotine dependence; Z98.890 Other specified postprocedural states
CPT/HCPCS: 99284 ×2; 96374 ×2; 96375 ×2; 96361 ×2; 36415; 80053; 85025; 86140; 81001; 76770; J2405; J1885

== ENCOUNTER → 2019-12-06 | Outpatient (CLI) | payer BC ==
--- NOTE | 2019-12-06 10:40 | US ---
EXAMINATION TYPE: US kidneys/renal and bladder DATE OF EXAM: 12/06/2019 COMPARISON: 12/01/2019 CLINICAL HISTORY: N13.30 Unspecified hydronephrosis. Hydronephrosis hx of stones. EXAM MEASUREMENTS: Right Kidney: 10.3 x 3.2 x 4.9 cm Left Kidney: 10.4 x 5.3 x 4.0 cm Right Kidney: Cystic area seen lower pole 1.7 x 1.6 x 1.6 cm. Stone on previous exam not seen on toda y's study. Left Kidney: No hydronephrosis or masses seen Bladder: wnl Bilateral Jets seen: Yes There is no evidence for hydronephrosis at this point in time. No nephrolithiasis is seen. The urina ry bladder is anechoic. Bilateral ureteral jets are seen. IMPRESSION: Benign-appearing right renal cyst. The previously seen 6 mm right renal calculus on the e xam of 12/01/2019 is not visualized on today's exam.
== END | disposition home or self-care (01) ==
LOC: RADUSWWP 09:30
PROVIDERS: ATTEND Family Medicine
DX: N28.1 Cyst of kidney, acquired (principal)
CPT/HCPCS: 76770

== ENCOUNTER → 2019-12-08 | Outpatient (CLI) | payer BC ==
--- NOTE | 2019-12-08 12:19 | XR ---
KUB HISTORY: Kidney stones, bilateral renal calculi Frontal KUB submitted on 2 images and correlated to prior abdomen 12/08/2015, CT 02/06/2016 Postop changes are noted to the bowel in the right hemiabdomen. Calcifications overlying the lower po le the left kidney measuring approximately 11 mm, smaller calcifications are scattered within the lef t kidney measuring only 2 to 3 mm, additional 2 or 3 calcifications thought to be present, bowel gas may obscure underlying detail. Calcifications in the left hemipelvis represent phleboliths. Mild levo scoliosis present. IMPRESSION: Nephrolithiasis.
== END | disposition home or self-care (01) ==
LOC: RADXRMAIN 11:48
PROVIDERS: ATTEND Urology
DX: N20.0 Calculus of kidney (principal)
CPT/HCPCS: 74018

== ENCOUNTER → 2021-10-09 | Outpatient (CLI) | payer BC ==
--- NOTE | 2021-10-09 16:03 | CT ---
EXAMINATION TYPE: CT urogram wo/w con DATE OF EXAM: 10/09/2021 COMPARISON: CT abdomen and pelvis February 06, 2016 HISTORY: Microhematuria CT DLP: 1709 mGycm, Automated Exposure Control for Dose Reduction was Utilized. CONTRAST: CT scan of the abdomen and pelvis is performed without oral and without and with IV Contrast, patient injected with 100 mL of Isovue 370. Urogram protocol with 3-D reconstructed images created on an [employer] workstation and reviewed FINDINGS: LUNG BASES: Mild posterior bibasilar linear scarring and/or atelectasis is redemonstrated. LIVER/GB: No significant abnormality is appreciated. PANCREAS: No significant abnormality is seen. SPLEEN: No significant abnormality is seen. ADRENALS: No significant abnormality is seen. KUB: Noncontrast images redemonstrate multiple small nonobstructing renal calculi bilaterally. In the right kidney there are approximately 6-8 small scattered nonobstructing renal calculi in the left ki dney there are similar number. Largest calculus lower pole left kidney measures 9 mm long axis manzo l image 47. Postcontrast images show symmetric cortical uptake and excretion without hydronephrosis seen bilatera lly. There is simple appearing 1.7 cm thin-walled cyst posteriorly lower pole right kidney partially exophytic with some dependent milk of calcium coronal image 56 series 4. Satisfactory opacification o f bilateral ureters without obstructing calculus or mass. Urinary bladder shows no worrisome mass or calculus. BOWEL: Surgical changes from appendectomy at base of cecum. No suspicious small or large bowel dilata tion. PROSTATE/SEMINAL VESICLES: Heterogeneous mildly enlarged prostate gland consistent with BPH. LYMPH NODES: No greater than 1cm abdominal or pelvic lymph nodes are appreciated. OSSEOUS STRUCTURES: Small posterior disc herniation L5-S1 level sagittal image 91. OTHER: No significant additional abnormality is seen. IMPRESSION: Multiple nonobstructing bilateral renal calculi redemonstrated as detailed above.
== END | disposition home or self-care (01) ==
LOC: RADCTMAIN 14:10
PROVIDERS: ATTEND Urology
DX: N20.0 Calculus of kidney (principal); M51.27 Other intervertebral disc displacement, lumbosacral region; N40.0 Benign prostatic hyperplasia without lower urinary tract symptoms; J98.4 Other disorders of lung
CPT/HCPCS: 74178; 74400; Q9967

== ENCOUNTER 2021-10-19 07:37 | Day surgery (SDC) | payer BC ==
[2021-10-15 15:37] VITALS: BMI 23.0
[2021-10-19 07:57] VITALS: RESP 16; TEMP 97.4
[2021-10-19] MEDS ORDERED: PROPOFOL 10 MG/ML 20 ML VIAL IV ONE (08:36)
[2021-10-19] MEDS ORDERED: LIDOCAINE 1% INJ 10MG/ML (20 ML MDV) ONE (08:36)
--- NOTE | 2021-10-19 08:52 | P.PCN ---
Date of Procedure: 10/19/21 Procedure(s) Performed: BRIEF HISTORY: Patient is a 61-year-old pleasant 61 white male scheduled for an elective colonoscopy as a part of surveillance of long-standing history of Crohn's disease. He was diagnosed with Crohn's ileitis in 2004 and status post right hemicolectomy. He is currently maintained on Humira every 2 weeks since 2016 and remains in clinical remission. PROCEDURE PERFORMED: Colonoscopy with biopsy.. PREOPERATIVE DIAGNOSIS: History of Crohn's disease. IV sedation per Anesthesia. PROCEDURE: After informed consent was obtained, the patient, was brought into the endoscopy unit. IV sedation was administered by Anesthesia under continuous monitoring. Digital rectal examination was normal. Initially the Olympus CF-160 flexible video colonoscope was then inserted in the rectum, gradually advanced into the right colon without any difficulty and examination was performed. Prep was excellent. The liquid anastomosis appeared narrowed with multiple superficial erosions and biopsies were done from this area. The scope could not be advanced through the anastomosis because of the stricture. The rest of the ascending colon, transverse colon, descending colon, sigmoid colon, and rectum appeared normal. Retroflexion was performed in the rectum and no lesions were seen. The sigmoid diverticulosis seen. The patient tolerated the procedure well. IMPRESSION: Narrowing of the liquid anastomosis with superficial erosions consistent with active Crohn's disease Rest of the colon appeared normal. Scattered sigmoid diverticulosis RECOMMENDATIONS: Findings of this examination were discussed with the patient as well as his family. He was advised to follow with the biopsy results. He will continue with Humira every 2 weeks and have a repeat colonoscopy in 5 years..
[2021-10-19 08:59] VITALS: PULSE 71
[2021-10-19 09:22] VITALS: BP 111/80
== END 2021-10-19 09:35 | disposition home or self-care (01) ==
LOC: ORWHC2ENDO 07:37
PROVIDERS: ATTEND Internal Medicine Gastroenterology
DX: K52.9 Noninfective gastroenteritis and colitis, unspecified (principal); K57.30 Diverticulosis of large intestine without perforation or abscess without bleeding; Z79.899 Other long term (current) drug therapy; G62.9 Polyneuropathy, unspecified; Z88.1 Allergy status to other antibiotic agents; Z90.49 Acquired absence of other specified parts of digestive tract
CPT/HCPCS: 88305; 45380; J2001; J2704

== ENCOUNTER → 2022-01-07 | Outpatient (CLI) | payer BC ==
[2022-01-07 11:41] LABS: Appearance,Urine Clear (Clear); Bilirubin,Urine Negative (Negative); Blood,Urine Trace (Negative); Color,Urine Yellow; Glucose,Urine (UA) Negative (Negative); Ketones,Urine Negative (Negative); Leukocyte Esterase,Urine Negative (Negative); Mucus,Urine Rare /hpf; Nitrite,Urine Negative (Negative); Protein,Urine Negative (Negative); RBC,Urine 2 /hpf (0-5); Specific Gravity,Urine 1.013 (1.001-1.035); Urobilinogen,Urine <2.0 mg/dL (<2.0); WBC,Urine <1 /hpf (0-5)
[2022-01-07 18:24] LABS: Basophils # (A) 0.04 X 10*3/uL (0.00-0.10); Basophils % (A) 0.4 %; Eosinophils # (A) 0.11 X 10*3/uL (0.04-0.35); Eosinophils % (A) 1.2 %; HCT 50.3 % (39.6-50.0); HGB 16.1 g/dL (13.0-17.0); Immature Grans, Automated 0.3 %; Lymphocytes # (A) 3.06 X 10*3/uL (0.90-5.00); Lymphocytes % (A) 34.2 %; MCH 29.3 pg (27.0-32.0); MCV 91.5 fL (80.0-97.0); Mean Platelet Volume 9.9 fL (9.5-12.2); Monocytes % (A) 6.7 %; NRBC Per 100 WBC 0 /100 WBCS (0.0-0.0); Neutrophils # (A) 5.11 X 10*3/uL (1.80-7.70); Neutrophils % (A) 57.2 %; Platelet Count 273 X 10*3/uL (140-440); RDW 12.6 % (11.5-14.5); WBC 8.95 X 10*3/uL (4.50-10.00)
[2022-01-07 18:38] LABS: African American GFR (CKD) 84.1 (60.0-200.0); Anion Gap 12.8 mmol/L (10.00-18.00); BUN/Creat Ratio 13.64 Ratio (12.00-20.00); Calcium 9.6 mg/dL (8.7-10.3); Carbon Dioxide 23.2 mmol/L (20.0-27.5); Non-African American GFR(CKD) 72.6 (60.0-200.0); Potassium 4.3 mmol/L (3.5-5.5)
== END | disposition home or self-care (01) ==
LOC: LABPAT 09:55
PROVIDERS: ATTEND Urology
DX: Z01.812 Encounter for preprocedural laboratory examination (principal); N20.0 Calculus of kidney; R31.29 Other microscopic hematuria
CPT/HCPCS: 36415; 80048; 81001; 85025

== ENCOUNTER → 2022-02-04 | Outpatient (CLI) | payer BC ==
[2022-02-04 22:19] LABS: Appearance,Urine Clear (Clear); Bilirubin,Urine Negative (Negative); Blood,Urine Negative (Negative); Color,Urine Yellow (Yellow); Ketones,Urine Trace mg/dL (Negative); Nitrite,Urine Negative (Negative); Specific Gravity,Urine 1.022 (1.001-1.030); Urobilinogen,Urine 0.2 (0.2,1.0)
[2022-02-04 22:37] LABS: Basophils # (A) 0.07 X 10*3/uL (0.00-0.10); Basophils % (A) 0.7 %; Eosinophils # (A) 0.11 X 10*3/uL (0.04-0.35); Eosinophils % (A) 1.1 %; HCT 49.5 % (39.6-50.0); Immature Grans, Automated 0.3 %; Lymphocytes # (A) 3.28 X 10*3/uL (0.90-5.00); Lymphocytes % (A) 31.7 %; MCH 29.5 pg (27.0-32.0); MCHC 32.3 g/dL (32.0-37.0); MCV 91.3 fL (80.0-97.0); Mean Platelet Volume 9.6 fL (9.5-12.2); Monocytes # (A) 0.64 X 10*3/uL (0.20-1.00); Monocytes % (A) 6.2 %; NRBC Per 100 WBC 0 /100 WBCS (0.0-0.0); Neutrophils # (A) 6.22 X 10*3/uL (1.80-7.70); Platelet Count 294 X 10*3/uL (140-440); RBC 5.42 X 10*6/uL (4.40-5.60); RDW 12.9 % (11.5-14.5); WBC 10.35 X 10*3/uL (4.50-10.00)
[2022-02-04 23:25] LABS: Anion Gap 11.2 mmol/L (10.00-18.00); BUN/Creat Ratio 13.27 Ratio (12.00-20.00); Blood Urea Nitrogen 13.8 mg/dL (9.0-27.0); Calcium 9.7 mg/dL (8.7-10.3); Carbon Dioxide 22.7 mmol/L (20.0-27.5); Non-African American GFR(CKD) 77.7 (60.0-200.0); Potassium 4.1 mmol/L (3.5-5.5)
== END | disposition home or self-care (01) ==
LOC: LABPAT 13:47
PROVIDERS: ATTEND Urology
DX: Z01.812 Encounter for preprocedural laboratory examination (principal); N20.0 Calculus of kidney; R31.29 Other microscopic hematuria
CPT/HCPCS: 36415; 80048; 81003; 85025; 87086

== ENCOUNTER 2022-02-12 20:42 | Emergency (ER) | payer BC ==
[2022-02-12 21:07] VITALS: BP 118/70; PULSE 90; RESP 18; TEMP 98.2
--- NOTE | 2022-02-12 22:19 | ED ---
Male Urogenital HPI - General Chief complaint: Urogenital Stated complaint: Unable to urinate, Pain in bladder, Post-op pain Time Seen by Provider: 02/12/22 22:00 Source: patient, RN notes reviewed, old records reviewed Mode of arrival: ambulatory Limitations: no limitations - History of Present Illness Initial comments: Well-appearing 61-year-old male, alert and oriented 4, presents with urinary retention since approximately 1:00 this afternoon. Patient had kidney stone removed with his urologist yesterday and has been having some hematuria since. He noticed some decrease in urine output around 1:00 this afternoon. Patient states that he has been unable to urinate with increased abdominal distention and discomfort. He denies any nausea, vomiting or diarrhea, no fevers, no flank pain. He is taking his tramadol and antibiotics as prescribed. He states he did call his urologist and stated he would see him tomorrow morning. MD Complaint: other (Urinary retention) -: hour(s) (9) Severity scale (1-10): 10 Consistency: constant Improves with: urination (Gage catheter insertion) Reports: urinary retention, blood in urine - Related Data Home Medications Medication Instructions Recorded Confirmed Cetirizine HCl [Zyrtec] 10 mg PO DAILY PRN 05/02/17 02/11/22 Adalimumab [Humira Pen] 40 mg INJ Q14D 10/15/21 02/11/22 Denosumab [Prolia] 60 mg SQ DIRECTED 10/15/21 02/11/22 Previous Rx's Medication Instructions Recorded Cephalexin [Keflex] 500 mg PO Q8HR #15 cap 02/11/22 Ketorolac [Toradol] 10 mg PO Q6HR PRN #15 tab 02/11/22 Tamsulosin [Flomax] 0.4 mg PO DAILY #10 cap 02/11/22 Allergies Allergy/AdvReac Type Severity Reaction Status Date / Time ciprofloxacin [From Cipro] AdvReac Severe Unknown Verified 02/11/22 11:27 ciprofloxacin HCl AdvReac Severe Unknown Verified 02/11/22 11:27 [From Cipro] levofloxacin [From Levaquin] AdvReac Severe Unknown Verified 02/11/22 11:27 Review of Systems ROS Statement: Those systems with pertinent positive or pertinent negative responses have been documented in the HPI. ROS Other: All systems not noted in ROS Statement are negative. Past Medical History Additional Past Medical History / Comment(s): Chrohn's dx involving terminal ileum with abscess, heart murmur, lower back pain with L leg sciatica-none since September 2015, lyme's disease, normocytic anemia, peripheral neuropathy, renal stones, History of Any Multi-Drug Resistant Organisms: None Reported Past Surgical History: Orthopedic Surgery Additional Past Surgical History / Comment(s): ileocecetomy with sepsis 2016, colonoscopies, EGD, vasectomy, L sided wisdom teeth extraction. right shoulder, Past Anesthesia/Blood Transfusion Reactions: No Reported Reaction Past Psychological History: No Psychological Hx Reported Smoking Status: Former smoker Past Alcohol Use History: Rare Past Drug Use History: Marijuana - Past Family History Father Additional Family Medical History / Comment(s): Father has Crohn's dx. Mother Family Medical History: Diabetes Mellitus, Thyroid Disorder Additional Family Medical History / Comment(s): Mother is pre-diabetic and has heart valve disease,bladder dysplasia General Exam Limitations: no limitations General appearance: alert, in no apparent distress Respiratory exam: Present: normal lung sounds bilaterally. Absent: respiratory distress, accessory muscle use Cardiovascular Exam: Present: regular rate GI/Abdominal exam: Present: soft, normal bowel sounds. Absent: distended, tenderness, guarding, rebound, rigid Extremities exam: Present: normal capillary refill. Absent: pedal edema Neurological exam: Present: alert, oriented X3 Psychiatric exam: Present: normal affect, normal mood Skin exam: Present: warm, dry, normal color. Absent: cyanosis, diaphoretic Course Vital Signs 02/12/22 21:05 Temperature 98.2 F Pulse Rate 90 Respiratory 18 Rate Blood Pressure 118/70 O2 Sat by Pulse 98 Oximetry Medical Decision Making - Medical Decision Making On bladder scan patient had over 1000ml. Nurse placed a Gage catheter with 1400 mL of hematuria with clots. Patient states relief of abdominal discomfort. He was discharged home with Gage catheter in place. He was instructed to continue his previously prescribed medications including Keflex, Tramadol and Flomax. Follow up with urology tomorrow morning. He was given strict return parameters, to return if no urine draining into catheter bag, increased abdominal or back pain or fevers. He is agreeable to this plan of care. He was offered additional pain medication and declined at this time. Case discussed with Dr. Holly Disposition Clinical Impression: Urinary retention, Hematuria Disposition: HOME SELF-CARE Condition: Good Instructions (If sedation given, give patient instructions): Urinary Retention in Men (ED), Hematuria (ED) Additional Instructions: Return to the emergency room with any new or concerning symptoms including fever, back pain, urine retention with no urine draining into Gage catheter bag. Continue taking the medications as previously prescribed by your urologist. Follow-up with your urologist tomorrow morning. Is patient prescribed a controlled substance at d/c from ED?: No Referrals: Efra Edwards MD [Primary Care Provider] - 1-2 days Vinod Taveras MD [STAFF PHYSICIAN] - 1-2 days Time of Disposition: 22:19
== END 2022-02-12 22:43 | disposition home or self-care (01) ==
LOC: EC 20:42
DX: R33.9 Retention of urine, unspecified (principal); R31.9 Hematuria, unspecified
CPT/HCPCS: 51702; 99283

== ENCOUNTER → 2022-06-14 | Outpatient (CLI) | payer BC ==
--- NOTE | 2022-06-14 12:02 | CT ---
EXAMINATION TYPE: CT angio chest DATE OF EXAM: 06/14/2022 11:49 AM COMPARISON: 05/10/2017 HISTORY: Thoracic Aortic Aneurysm, without rupture CT DLP: 484.40 mGycm Automated exposure control for dose reduction was used. CONTRAST: CTA scan of the thorax is performed without and with IV Contrast, patient injected with 100 mL of Iso brayden 370, pulmonary embolism protocol. . FINDINGS: The heart is normal size without pericardial effusion. Minimal coronary vascular calcifications are p resent. Proximal ascending aorta measures 4.0 cm, unchanged. Variant direct takeoff of the left vertebral art patricia directly from the aortic arch. Satisfactory opacification of the pulmonary arterial system without evidence for pulmonary embolus. C oronary artery calcification noted. No pneumomediastinum or pneumothorax. No subcutaneous emphysema. No thoracic lymphadenopathy. Mild hy perinflation correlate for COPD or asthma. 6 mm posterior left lower lobe pulmonary nodule is unchanged from prior. Dependent areas of strandy atelectasis. No consolidation or pleural effusion. Visualized upper abdomen shows no gross abnormality. Bones: There is some degenerative vacuum phenomenon in the left sternoclavicular joint. Small superio r endplate Schmorl's nodes within the mid to lower thoracic spine. No osseous destructive process. IMPRESSION: 1. Proximal ascending aorta measures 4.0 cm compatible with mild aneurysmal dilation. 2. THE 6 MM LEFT LOWER LOBE PULMONARY NODULE IS STABLE. 3. CORONARY ARTERY ATHEROSCLEROTIC CHANGES.
== END | disposition home or self-care (01) ==
LOC: RADCTMAIN 10:43
PROVIDERS: ATTEND Internal Medicine Interventional Cardiology
DX: I25.10 Atherosclerotic heart disease of native coronary artery without angina pectoris (principal); R91.1 Solitary pulmonary nodule
CPT/HCPCS: 71275; Q9967

== ENCOUNTER → 2023-05-20 | Outpatient (CLI) | payer BC ==
[2023-05-20 20:30] LABS: HCT 47.4 % (39.6-50.0); HGB 15.3 d/dL (13.0-17.0); MCH 29.5 pg (27.0-32.0); MCHC 32.3 d/dL (32.0-37.0); MCV 91.3 FL (80.0-97.0); Mean Platelet Volume 9.4 FL (9.5-12.2); NRBC Per 100 WBC 0 X 10*3/uL (0.00-0.01); Platelet Count 259 X 10*3/uL (140-440); RBC 5.19 X 10*6/uL (4.40-5.60); RDW 12.9 % (11.5-14.5); WBC 9.33 X 10*3/uL (4.50-10.00)
[2023-05-20 21:23] LABS: ALT 24 U/L (10-49); AST 27 U/L (14-35); Chol/HDL Ratio 3.72 Ratio; LDL Cholesterol,Calculated 75.4 mg/dL (0.0-131.0)
== END | disposition home or self-care (01) ==
LOC: LABWHC1 14:21
PROVIDERS: ATTEND Internal Medicine Interventional Cardiology
DX: E78.00 Pure hypercholesterolemia, unspecified (principal)
CPT/HCPCS: 36415; 80061; 83036; 84450; 84460; 85027

== ENCOUNTER → 2023-05-29 | Outpatient (CLI) | payer BC ==
[2023-05-29 13:17] LABS: Basophils # (A) 0.05 X 10*3/uL (0.00-0.10); Basophils % (A) 0.7 %; Eosinophils # (A) 0.12 X 10*3/uL (0.04-0.35); Eosinophils % (A) 1.6 %; Lymphocytes # (A) 3.37 X 10*3/uL (0.90-5.00); Lymphocytes % (A) 45.7 %; MCH 30.3 pg (27.0-32.0); MCHC 33.3 d/dL (32.0-37.0); MCV 90.9 FL (80.0-97.0); Mean Platelet Volume 9.4 FL (9.5-12.2); Monocytes # (A) 0.49 X 10*3/uL (0.20-1.00); Monocytes % (A) 6.6 %; NRBC Per 100 WBC 0 X 10*3/uL (0.00-0.01); Neutrophils # (A) 3.33 X 10*3/uL (1.80-7.70); Neutrophils % (A) 45.1 %; Platelet Count 248 X 10*3/uL (140-440); RBC 4.95 X 10*6/uL (4.40-5.60); RDW 12.9 % (11.5-14.5); WBC 7.38 X 10*3/uL (4.50-10.00)
[2023-05-29 13:41] LABS: ALT 21 U/L (10-49); AST 22 U/L (14-35); Albumin 4.6 d/dL (3.8-4.9); Albumin/Globulin Ratio 2.09 Ratio (1.60-3.17); Alkaline Phosphatase 66 U/L (41-126); Blood Urea Nitrogen 12.6 mg/dL (9.0-27.0); Calcium 9.4 mg/dL (8.7-10.3); Carbon Dioxide 25.7 mmol/L (21.6-31.8); Chloride 108 mmol/L (96-109); Globulin 2.2 d/dL (1.6-3.3); Glucose 99 mg/dL (70-110); Sodium 144 mmol/L (135-145); Total Bilirubin 0.5 mg/dL (0.3-1.2); Total Protein 6.8 d/dL (6.2-8.2)
== END | disposition home or self-care (01) ==
LOC: LABWHC1 07:35
PROVIDERS: ATTEND Internal Medicine Gastroenterology
DX: K50.90 Crohn's disease, unspecified, without complications (principal)
CPT/HCPCS: 36415; 80053; 85025

== ENCOUNTER → 2023-11-24 | Outpatient (CLI) | payer BC ==
[2023-11-24 16:00] LABS: Basophils # (A) 0.08 X 10*3/uL (0.00-0.10); Basophils % (A) 0.8 %; Eosinophils # (A) 0.19 X 10*3/uL (0.04-0.35); Eosinophils % (A) 1.9 %; HCT 47.2 % (39.6-50.0); HGB 15.5 g/dL (13.0-17.0); Lymphocytes % (A) 35.8 %; MCH 29.9 pg (27.0-32.0); MCHC 32.8 g/dL (32.0-37.0); MCV 91.1 FL (80.0-97.0); Mean Platelet Volume 9.7 FL (9.5-12.2); Monocytes % (A) 6.1 %; NRBC Per 100 WBC 0 X 10*3/uL (0.00-0.01); Neutrophils # (A) 5.38 X 10*3/uL (1.80-7.70); Neutrophils % (A) 55.1 %; Platelet Count 242 X 10*3/uL (140-440); RBC 5.18 X 10*6/uL (4.40-5.60); RDW 12.3 % (11.5-14.5); WBC 9.78 X 10*3/uL (4.50-10.00)
== END | disposition home or self-care (01) ==
LOC: LABWHC1 11:11
PROVIDERS: ATTEND Internal Medicine Gastroenterology
DX: K50.90 Crohn's disease, unspecified, without complications (principal)
CPT/HCPCS: 36415; 85025

== ENCOUNTER → 2024-01-29 | Outpatient (CLI) | payer BC ==
--- NOTE | 2024-01-29 15:02 | CT ---
EXAMINATION TYPE: CT angio chest CT DLP: 609.8 mGycm, Automated exposure control for dose reduction was used. DATE OF EXAM: 01/29/2024 2:20 PM COMPARISON: Chest 05/10/2017 and 06/14/2022. CLINICAL INDICATION:Male, 63 years old with history of I71.2 THORACIC AORTIC ANEURYSM; f/u aneurysm TECHNIQUE/CONTRAST: CTA scan of the thorax is performed without and with IV Contrast, patient injected with 100 mL of Iso brayden 370, MIP images are created and reviewed these are created on a separate workstation.. FINDINGS: Pulmonary Artery: There is no evidence for a filling defect within the pulmonary vasculature to sugge st acute pulmonary embolism. The pulmonary artery is of normal size. Lungs/Pleura: No evidence of focal consolidation, pleural effusion or pneumothorax. 7 mm left lower l scar pulmonary nodule. Airway: Large airways are patent. Heart: Heart is within normal limits for size. Vasculature: No evidence for intramural hematoma on noncontrast imaging. No evidence of intimal flap to suggest dissection. No aneurysm identified. Scattered atherosclerotic disease. Borderline ectasia of the ascending thoracic aorta up to 41 mm. 4 vessel aortic arch which appear patent. The pulmonary trunk is dilated up to 37 mm. Mediastinum: No gross evidence of adenopathy. Musculoskeletal: Mild degenerative disc disease changes are present throughout the thoracolumbar spin e. Soft Tissues: Unremarkable. Lower neck: No significant findings. Upper Abdomen: No significant findings. IMPRESSION: 1. No evidence for aortic aneurysm. 2. Ectasia of the ascending thoracic aorta up to 41 mm. 3. Pulmonary hypertension. 4. Left lower lung 7 mm pulmonary nodule stable back to at least 2021 and mildly increased in size 2016. Given its slow growth this is favored represent a granulomatous pulmonary nodule. Follow up recommendations for incidental pulmonary nodules, if there are any, are per [employer] or [employer]. https://radiopaedia.org/articles/sopazhpmwn-qubbckb-almxvmliz-lknyyr-[email or web address]-[email or web address]?lang=us
== END | disposition home or self-care (01) ==
LOC: RADCTMAIN 13:15
PROVIDERS: ATTEND Internal Medicine Interventional Cardiology
DX: I77.810 Thoracic aortic ectasia (principal); I27.20 Pulmonary hypertension, unspecified; R91.1 Solitary pulmonary nodule
CPT/HCPCS: 71275; Q9967

== ENCOUNTER 2024-03-20 19:09 | Emergency (ER) | payer BC ==
[2024-03-20 19:25] VITALS: RESP 18; TEMP 98.2
--- NOTE | 2024-03-20 19:48 | ED ---
General Adult HPI - General Source: patient, RN notes reviewed Mode of arrival: ambulatory Limitations: no limitations <Amina Solis - Last Filed: 03/20/24 19:46> <Mariano June - Last Filed: 03/20/24 23:21> - General Chief complaint: Skin/Abscess/Foreign Body Stated complaint: boil in pelvic area Time Seen by Provider: 03/20/24 19:25 - History of Present Illness Initial comments: Quick note-is a 63-year-old male with a history of Crohn's on Humira who presents emergency department chief complaint of a abscess to his right groin that started about a week ago. Patient states that he was seen in urgent care on Friday was prescribed doxycycline but states that the abscess is getting worse. He states that this morning he noticed red streaking down his groin and up his abdomen in addition to feeling nauseous and lightheaded. Patient has a history of a bowel resection in 2016 due to abscesses of his small intestine. (Amina Solis) 63-year-old male presenting to the ED with a chief complaint of abscess. Patient states that he has had an abscess to his right lower For the past week. Was on doxycycline however despite taking this as prescribed has had no relief with this and reports he has been getting worse. Denies fever or chills. No chest pain or shortness of breath. No other complaints at this time. Tetanus status unknown. (Mariano June) - Related Data Home Medications Medication Instructions Recorded Confirmed Cetirizine HCl [Zyrtec] 10 mg PO DAILY PRN 05/02/17 02/11/22 Adalimumab [Humira Pen] 40 mg INJ Q14D 10/15/21 02/11/22 Denosumab [Prolia] 60 mg SQ DIRECTED 10/15/21 02/11/22 Previous Rx's Medication Instructions Recorded Cephalexin [Keflex] 500 mg PO Q8HR #15 cap 02/11/22 Ketorolac [Toradol] 10 mg PO Q6HR PRN #15 tab 02/11/22 Tamsulosin [Flomax] 0.4 mg PO DAILY #10 cap 02/11/22 Cephalexin [Keflex] 500 mg PO Q6HR 7 Days #28 cap 03/20/24 Sulfamethox-Tmp 800-160Mg [Bactrim 1 each PO Q12HR 7 Days #14 tab 03/20/24 Ds] Allergies Allergy/AdvReac Type Severity Reaction Status Date / Time ciprofloxacin [From Cipro] AdvReac Severe Unknown Verified 03/20/24 19:25 ciprofloxacin HCl AdvReac Severe Unknown Verified 03/20/24 19:25 [From Cipro] levofloxacin [From Levaquin] AdvReac Severe Unknown Verified 03/20/24 19:25 Review of Systems ROS Other: All systems not noted in ROS Statement are negative. <Amina Solis - Last Filed: 03/20/24 19:46> ROS Other: All systems not noted in ROS Statement are negative. <Mariano June - Last Filed: 03/20/24 23:21> ROS Statement: Those systems with pertinent positive or pertinent negative responses have been documented in the HPI. Past Medical History Additional Past Medical History / Comment(s): Chrohn's dx involving terminal ileum with abscess, heart murmur, lower back pain with L leg sciatica-none since September 2015, lyme's disease, normocytic anemia, peripheral neuropathy, renal stones, History of Any Multi-Drug Resistant Organisms: None Reported Past Surgical History: Orthopedic Surgery Additional Past Surgical History / Comment(s): ileocecetomy with sepsis 2015, colonoscopies, EGD, vasectomy, L sided wisdom teeth extraction. right shoulder, Past Anesthesia/Blood Transfusion Reactions: No Reported Reaction Past Psychological History: No Psychological Hx Reported Smoking Status: Former smoker Past Alcohol Use History: Rare Past Drug Use History: Marijuana - Past Family History Father Additional Family Medical History / Comment(s): Father has Crohn's dx. Mother Family Medical History: Diabetes Mellitus, Thyroid Disorder Additional Family Medical History / Comment(s): Mother is pre-diabetic and has heart valve disease,bladder dysplasia <Amina Solis - Last Filed: 03/20/24 19:46> General Exam Limitations: no limitations <Amina Solis - Last Filed: 03/20/24 19:46> General appearance: alert, in no apparent distress Eye exam: Present: normal appearance Neck exam: Present: normal inspection Respiratory exam: Present: normal lung sounds bilaterally Cardiovascular Exam: Present: regular rate GI/Abdominal exam: Present: soft, normal bowel sounds. Absent: distended, tenderness, guarding, rebound, rigid Skin exam: Present: warm, dry, other (2 x 2 cm abscess with some surrounding warmth and erythema overlying the hip medial to the ASIS.) <Mariano June - Last Filed: 03/20/24 23:21> - General Exam Comments Initial Comments: Visual Physical Exam Vital signs reviewed General: Well-appearing, nontoxic, no acute distress. Head: Normocephalic, atraumatic Eyes: PERRLA, EOMI ENT: Airway patent Chest: Nonlabored breathing Skin: No visual rash, normal skin tone Neuro: Alert and oriented 3 Musculoskeletal: No gross abnormalities (Amina Solis) Course Vital Signs 03/20/24 03/20/24 19:24 22:03 Temperature 98.2 F Pulse Rate 83 77 Respiratory 18 18 Rate Blood Pressure 119/76 128/86 O2 Sat by Pulse 96 99 Oximetry Procedures - Incision & Drainage Consent Obtained: verbal consent (L panel) Site: lower extremity Size (cm): 2 Anesthetic Used: lidocaine 2%, with epi Amount (mLs): 4 Sterile Field Used?: Yes Ultrasound used: No Needle Aspiration Performed?: Yes Irrigation Performed?: Yes I&D Drainage Obtained: Pus Culture Obtained?: Yes Patient Tolerated Procedure: well, no complications <Mariano June - Last Filed: 03/20/24 23:21> Medical Decision Making <Amina Solis - Last Filed: 03/20/24 19:46> - Lab Data Result diagrams: 03/20/24 20:01 03/20/24 20:01 <Mariano June - Last Filed: 03/20/24 23:21> - Medical Decision Making I completed the quick note portion of this chart signed Amina Solis PA-C (Amina Solis) Was pt. sent in by a medical professional or institution (JAMEL Lewis, RESPIRATORY CLINICIAN, urgent care, hospital, or [place] health care facility...) When possible be specific @ -No Did you speak to anyone other than the patient for history (EMS, parent, family, police, friend...)? What history was obtained from this source @ -No Did you review nursing and triage notes (agree or disagree)? Why? @ -I reviewed and agree with nursing and triage notes Were old charts reviewed (outside hosp., previous admission, EMS record, old EKG, old radiological studies, urgent care reports/EKG's, [place] health care facility records)? Report findings @ -No old charts were reviewed Differential Diagnosis (chest pain, altered mental status, abdominal pain women, abdominal pain men, vaginal bleeding, weakness, fever, dyspnea, syncope, headache, dizziness, GI bleed, back pain, seizure, CVA, palpatations, mental health, musculoskeletal)? @ -Differential Musculoskeletal Muscular strain, contusion, ligament sprain, fracture, arthritis, septic arthritis, bursitis, cellulitis, muscle spasm, nerve compression, DVT, arterial occlusion, herpes zoster, electrolyte abnormality, tumor.... This is not meant to be in all inclusive list EKG interpreted by me (3pts min.). @ -As above X-rays interpreted by me (1pt min.). @ -None done CT interpreted by me (1pt min.). @ -CT abdomen pelvis with contrast interpreted me which revealed no evidence of acute process or intra-abdominal extension of the abscess. U/S interpreted by me (1pt. min.). @ -None done What testing was considered but not performed or refused? (CT, X-rays, U/S, labs)? Why? @ -None What meds were considered but not given or refused? Why? @ -None Did you discuss the management of the patient with other professionals (professionals i.e. , PA, RESPIRATORY CLINICIAN, lab, RT, psych nurse, professor of social work, cab worker, teacher, event security officer, case repairer)? Give summary @ -No Was smoking cessation discussed for >3mins.? @ -No Was critical care preformed (if so, how long)? @ -No Were there social determinants of health that impacted care today? How? (Homelessness, low income, unemployed, alcoholism, drug addiction, transportatio n, low edu. Level, literacy, decrease access to med. care, halfway, rehab)? @ -No Was there de-escalation of care discussed even if they declined (Discuss DNR or withdrawal of care, Hospice)? DNR status @ -No What co-morbidities impacted this encounter? (DM, HTN, Smoking, COPD, CAD, Cancer, CVA, ARF, Chemo, Hep., AIDS, mental health diagnosis, sleep apnea, morbid obesity)? @ -None Was patient admitted / discharged? Hospital course, mention meds given and route, prescriptions, significant lab abnormalities, going to OR and other pertinent info. @ -Discharge 64-year-old male presented to the ED with a chief complaint of abscess to his right hip for the past week which has been worsening despite doxycycline. Laboratory studies reviewed labs including CBC CMP unremarkable. CT abdomen pelvis revealed no evidence of acute finding. Needle aspiration was performed with successful drainage of large amount of purulent material. Wound culture was obtained. Patient provided starter packs for Keflex and Bactrim and provided prescription for both as well. Discharged home in stable condition with instructions to follow-up with his PCP. Discussed return precautions with patient who verbalized agreement. Undiagnosed new problem with uncertain prognosis? @ -No Drug Therapy requiring intensive monitoring for toxicity (Heparin, Nitro, Insulin, Cardizem)? @ -No Were any procedures done? @ -No Diagnosis/symptom? @ -Abscess Acute, or Chronic, or Acute on Chronic? @ -Acute Uncomplicated (without systemic symptoms) or Complicated (systemic symptoms)? @ -Uncomplicated Side effects of treatment? @ -No Exacerbation, Progression, or Severe Exacerbation? @ -No Poses a threat to life or bodily function? How? (Chest pain, USA, PR, pneumonia, PE, COPD, DKA, ARF, appy, cholecystitis, CVA, Diverticulitis, Homicidal, Suicidal, threat to staff... and all critical care pts) @ -No (Mariano June) - Lab Data Lab Results 03/20/24 03/20/24 03/20/24 Range/Units 20:01 20:01 20:01 WBC 9.7 (3.8-10.6) k/uL RBC 4.84 (4.30-5.90) m/uL Hgb 14.3 (13.0-17.5) gm/dL Hct 45.1 (39.0-53.0) % MCV 93.2 (80.0-100.0) fL MCH 29.6 (25.0-35.0) pg MCHC 31.8 (31.0-37.0) g/dL RDW 13.4 (11.5-15.5) % Plt Count 302 (150-450) k/uL MPV 7.3 Neutrophils % 54 % Lymphocytes % 35 % Monocytes % 5 % Eosinophils % 3 % Basophils % 1 % Neutrophils # 5.3 (1.3-7.7) k/uL Lymphocytes # 3.4 (1.0-4.8) k/uL Monocytes # 0.5 (0-1.0) k/uL Eosinophils # 0.2 (0-0.7) k/uL Basophils # 0.1 (0-0.2) k/uL PT 10.8 (10.0-12.5) sec INR 1.0 (<1.2) APTT 25.7 (22.0-30.0) sec Sodium 140 (137-145) mmol/L Potassium 4.1 (3.5-5.1) mmol/L Chloride 110 H (98-107) mmol/L Carbon Dioxide 23 (22-30) mmol/L Anion Gap 7 mmol/L BUN 16 (9-20) mg/dL Creatinine 1.02 (0.66-1.25) mg/dL Est GFR (CKD-EPI)AfAm >90 (>60 ml/min/1.73 sqM) Est GFR (CKD-EPI)NonAf 79 (>60 ml/min/1.73 sqM) Glucose 86 (74-99) mg/dL Plasma Lactic Acid Harpal (0.7-2.0) mmol/L Calcium 9.4 (8.4-10.2) mg/dL Total Bilirubin 0.7 (0.2-1.3) mg/dL AST 31 (17-59) U/L ALT 19 (4-49) U/L Alkaline Phosphatase 78 (38-126) U/L Total Protein 7.0 (6.3-8.2) g/dL Albumin 4.4 (3.5-5.0) g/dL 03/20/24 Range/Units 20:01 WBC (3.8-10.6) k/uL RBC (4.30-5.90) m/uL Hgb (13.0-17.5) gm/dL Hct (39.0-53.0) % MCV (80.0-100.0) fL MCH (25.0-35.0) pg MCHC (31.0-37.0) g/dL RDW (11.5-15.5) % Plt Count (150-450) k/uL MPV Neutrophils % % Lymphocytes % % Monocytes % % Eosinophils % % Basophils % % Neutrophils # (1.3-7.7) k/uL Lymphocytes # (1.0-4.8) k/uL Monocytes # (0-1.0) k/uL Eosinophils # (0-0.7) k/uL Basophils # (0-0.2) k/uL PT (10.0-12.5) sec INR (<1.2) APTT (22.0-30.0) sec Sodium (137-145) mmol/L Potassium (3.5-5.1) mmol/L Chloride (98-107) mmol/L Carbon Dioxide (22-30) mmol/L Anion Gap mmol/L BUN (9-20) mg/dL Creatinine (0.66-1.25) mg/dL Est GFR (CKD-EPI)AfAm (>60 ml/min/1.73 sqM) Est GFR (CKD-EPI)NonAf (>60 ml/min/1.73 sqM) Glucose (74-99) mg/dL Plasma Lactic Acid Harpal 0.9 (0.7-2.0) mmol/L Calcium (8.4-10.2) mg/dL Total Bilirubin (0.2-1.3) mg/dL AST (17-59) U/L ALT (4-49) U/L Alkaline Phosphatase (38-126) U/L Total Protein (6.3-8.2) g/dL Albumin (3.5-5.0) g/dL Disposition <Amina Solis - Last Filed: 03/20/24 19:46> Is patient prescribed a controlled substance at d/c from ED?: No Time of Disposition: 23:21 <Mariano June - Last Filed: 03/20/24 23:21> Clinical Impression: Abscess Disposition: HOME SELF-CARE Condition: Good Instructions (If sedation given, give patient instructions): Abscess Incision and Drainage (ED), Abscess (ED) Additional Instructions: Please return to the Emergency Department if symptoms worsen or any other concerns. Please follow-up with your primary care provider. Prescriptions: Sulfamethox-Tmp 800-160Mg [Bactrim Ds] 1 each PO Q12HR 7 Days #14 tab Cephalexin [Keflex] 500 mg PO Q6HR 7 Days #28 cap Referrals: Efra Edwards MD [Primary Care Provider] - 1-2 days
[2024-03-20 20:18] LABS: Basophils # (A) 0.1 k/uL (0-0.2); Basophils % (A) 1 %; Eosinophils # (A) 0.2 k/uL (0-0.7); Eosinophils % (A) 3 %; HCT 45.1 % (39.0-53.0); HGB 14.3 gm/dL (13.0-17.5); Lymphocytes # (A) 3.4 k/uL (1.0-4.8); Lymphocytes % (A) 35 %; MCH 29.6 pg (25.0-35.0); MCHC 31.8 g/dL (31.0-37.0); MCV 93.2 fL (80.0-100.0); Mean Platelet Volume 7.3; Monocytes # (A) 0.5 k/uL (0-1.0); Monocytes % (A) 5 %; Neutrophils # (A) 5.3 k/uL (1.3-7.7); Neutrophils % (A) 54 %; Platelet Count 302 k/uL (150-450); RBC 4.84 m/uL (4.30-5.90); RDW 13.4 % (11.5-15.5); WBC 9.7 k/uL (3.8-10.6)
[2024-03-20 20:27] LABS: Partial Thromboplastin Time 25.7 sec (22.0-30.0); Prothrombin Time 10.8 sec (10.0-12.5)
[2024-03-20 20:29] LABS: ALT 19 U/L (4-49); AST 31 U/L (17-59); African American GFR (CKD) >90 (>60 ml/min/1.73 sqM); Albumin 4.4 g/dL (3.5-5.0); Alkaline Phosphatase 78 U/L (38-126); Anion Gap 7 mmol/L; Blood Urea Nitrogen 16 mg/dL (9-20); Calcium 9.4 mg/dL (8.4-10.2); Carbon Dioxide 23 mmol/L (22-30); Chloride 110 mmol/L (98-107); Glucose 86 mg/dL (74-99); Non-African American GFR(CKD) 79 (>60 ml/min/1.73 sqM); Potassium 4.1 mmol/L (3.5-5.1); Sodium 140 mmol/L (137-145); Total Bilirubin 0.7 mg/dL (0.2-1.3)
--- NOTE | 2024-03-20 21:23 | CT ---
EXAMINATION TYPE: CT abdomen pelvis w con DATE OF EXAM: 03/20/2024 COMPARISON: 10/09/2021 HISTORY: abscess right groin, buttock area. CT DLP: 831.1 mGycm CONTRAST: CT scan of the abdomen and pelvis is performed without Oral Contrast and with IV Contrast, patient in jected with 100 ml mL of Isovue 300. FINDINGS: LUNG BASES-: No visible nodule. No infiltrate. LIVER/GB: No calcified gallstones. No space occupying hepatic lesion. Biliary tree is of normal ca liber. PANCREAS: No inflammation. No distinct mass. SPLEEN: No splenic enlargement. No lesion seen. ADRENALS: No nodule. No thickening. KIDNEYS/BLADDER: No hydronephrosis. No nephrolithiasis. No distinct solid renal mass. Simple cyst lower pole right kidney. Urinary bladder grossly unremarkable. BOWEL: Postoperative changes about the cecum and ascending colon. Normal bowel caliber. No inflammat ion. GENITAL ORGANS: No gross abnormality. LYMPH NODES: No greater than 1cm abdominal or pelvic lymph nodes are appreciated. AORTA: No significant abnormality. OSSEOUS STRUCTURES: No significant abnormality is seen. OTHER: Subcutaneous collection measuring 2 cm right groin region may reflect an infected sebaceous cy st or small subcutaneous abscess. No additional infected collections seen. IMPRESSION: 1. Subcutaneous collection measuring 2 cm right groin region may reflect an infected sebaceous cyst o r small subcutaneous abscess. No additional infected collections seen. 2. Postoperative changes of partial right-sided hemicolectomy.
[2024-03-20] MEDS: HYDROmorphone 1 MG/ML 1 ML SYRINGE IVP STA (22:02)
[2024-03-20 22:04] VITALS: PULSE 77
[2024-03-20] MEDS: SULFAMETH-TMP DS STARTER PACK 2 TAB BTL PO STA (23:27)
[2024-03-20] MEDS: CEPHALEXIN 500MG STARTER PACK 4 CAP BTL PO STA (23:28)
[2024-03-20] MEDS: DIPH,PERTUS(ACELL)TETVAC-LF 0.5 ML VIAL IM ONE (23:29)
[2024-03-20 23:40] VITALS: BP 117/77
== END 2024-03-20 23:40 | disposition home or self-care (01) ==
LOC: EC 19:09
DX: L02.214 Cutaneous abscess of groin (principal); F12.90 Cannabis use, unspecified, uncomplicated; Z88.1 Allergy status to other antibiotic agents; Z88.6 Allergy status to analgesic agent; Z87.891 Personal history of nicotine dependence; Z23 Encounter for immunization
CPT/HCPCS: 36415; 80053; 83605; 85025; 85610; 85730; 87070; 87205; 74177; 90715; 99284; 90471; 96374; 10060; J1170; Q9967

== ENCOUNTER → 2024-08-06 | Outpatient (CLI) | payer BC ==
[2024-08-06 15:20] LABS: Basophils # (A) 0.06 X 10*3/uL (0.00-0.10); Basophils % (A) 0.7 %; Eosinophils # (A) 0.11 X 10*3/uL (0.04-0.35); Eosinophils % (A) 1.2 %; HCT 44.9 % (39.6-50.0); HGB 14.7 g/dL (13.0-17.0); Lymphocytes # (A) 3.29 X 10*3/uL (0.90-5.00); MCH 29.5 pg (27.0-32.0); MCHC 32.7 g/dL (32.0-37.0); MCV 90.2 FL (80.0-97.0); Mean Platelet Volume 9.7 FL (9.5-12.2); Monocytes # (A) 0.61 X 10*3/uL (0.20-1.00); Monocytes % (A) 6.9 %; NRBC Per 100 WBC 0 X 10*3/uL (0.00-0.01); Neutrophils # (A) 4.79 X 10*3/uL (1.80-7.70); Neutrophils % (A) 53.8 %; Platelet Count 249 X 10*3/uL (140-440); RBC 4.98 X 10*6/uL (4.40-5.60)
[2024-08-06 15:28] LABS: Protein, Total 6.7 g/dL (6.2-8.2); Total Protein 6.7 g/dL (6.2-8.2)
[2024-08-06 15:33] LABS: ALT 17 U/L (10-49); AST 22 U/L (14-35); Albumin 4.3 g/dL (3.8-4.9); Albumin/Globulin Ratio 1.79 Ratio (1.60-3.17); Alkaline Phosphatase 76 U/L (41-126); BUN/Creat Ratio 12.25 Ratio (12.00-20.00); Blood Urea Nitrogen 14.7 mg/dL (9.0-27.0); Calcium 9.2 mg/dL (8.7-10.3); Carbon Dioxide 25.4 mmol/L (21.6-31.8); Ceruloplasmin 21.3 mg/dL (20.0-60.0); Chloride 107 mmol/L (96-109); Globulin 2.4 g/dL (1.6-3.3); Glucose 100 mg/dL (70-110); Potassium 4.3 mmol/L (3.5-5.5); Sodium 143 mmol/L (135-145); Total Bilirubin 0.7 mg/dL (0.3-1.2)
[2024-08-09 13:16] LABS: Zinc, Serum 80 ug/dL (60-130)
== END | disposition home or self-care (01) ==
LOC: LABWHC1 09:17
PROVIDERS: ATTEND Internal Medicine Gastroenterology
DX: K50.90 Crohn's disease, unspecified, without complications (principal); G62.9 Polyneuropathy, unspecified
CPT/HCPCS: 36415; 80053; 82390; 82525; 84165; 84630; 85025; 86334

== ENCOUNTER → 2024-09-13 | Outpatient (CLI) | payer BC ==
[2024-09-13 14:57] LABS: Basophils # (A) 0.05 X 10*3/uL (0.00-0.10); Basophils % (A) 0.6 %; Eosinophils # (A) 0.09 X 10*3/uL (0.04-0.35); HCT 47.5 % (39.6-50.0); HGB 15.3 g/dL (13.0-17.0); Lymphocytes # (A) 3.36 X 10*3/uL (0.90-5.00); Lymphocytes % (A) 38.4 %; MCH 29.6 pg (27.0-32.0); MCHC 32.2 g/dL (32.0-37.0); MCV 91.9 FL (80.0-97.0); Mean Platelet Volume 9.4 FL (9.5-12.2); Monocytes # (A) 0.67 X 10*3/uL (0.20-1.00); Monocytes % (A) 7.7 %; NRBC Per 100 WBC 0 X 10*3/uL (0.00-0.01); Neutrophils # (A) 4.54 X 10*3/uL (1.80-7.70); Platelet Count 280 X 10*3/uL (140-440); RBC 5.17 X 10*6/uL (4.40-5.60); RDW 12.8 % (11.5-14.5); WBC 8.74 X 10*3/uL (4.50-10.00)
[2024-09-13 15:16] LABS: ALT 28 U/L (10-49); AST 25 U/L (14-35); Albumin 4.4 g/dL (3.8-4.9); Albumin/Globulin Ratio 1.69 Ratio (1.60-3.17); Alkaline Phosphatase 75 U/L (41-126); BUN/Creat Ratio 11.08 Ratio (12.00-20.00); Blood Urea Nitrogen 13.3 mg/dL (9.0-27.0); Calcium 9.3 mg/dL (8.7-10.3); Chloride 104 mmol/L (96-109); Erythrocyte Sedimentation Rate 11 mm/Hr (0-20); Globulin 2.6 g/dL (1.6-3.3); Glucose 101 mg/dL (70-110); Potassium 4.4 mmol/L (3.5-5.5); Sodium 140 mmol/L (135-145); Total Bilirubin 0.6 mg/dL (0.3-1.2)
== END | disposition home or self-care (01) ==
LOC: LABWHC1 10:42
PROVIDERS: ATTEND Internal Medicine Gastroenterology
DX: K50.90 Crohn's disease, unspecified, without complications (principal)
CPT/HCPCS: 36415; 80053; 85025; 85652

== ENCOUNTER 2024-12-24 12:49 | Emergency (ER) | payer BC ==
--- NOTE | 2024-12-24 13:01 | ED ---
Abdominal Pain HPI - General Source: patient, RN notes reviewed Mode of arrival: ambulatory Limitations: no limitations <Nivia Blum - Last Filed: 12/24/24 13:00> <Amina Solis - Last Filed: 12/24/24 18:49> <Carlota Doyle - Last Filed: 12/24/24 23:20> - General Stated Complaint: Abd/Back Pain-sent form urgentcare Time Seen by Provider: 12/24/24 13:00 - History of Present Illness Initial Comments: Quick note: 64-year-old male with a past medical history significant of of Crohn's disease presenting to the ER for evaluation of diarrhea and abdominal pain. He states since Friday around midnight he has been having consistent diarrhea especially after eating. Abdominal pain to the right abdomen. Denies fever. Patient was seen at urgent care prior to arrival and told to report to the emergency department. (Nivia Blum) This is a 64-year-old male with a history of Crohn's disease with subsequent small bowel resection presenting to the emergency department with referral from urgent care for complaint of abdominal cramping and diarrhea. He states that over the past 3 to 4 days he has been having consistent diarrhea most notable after eating. Pain is mostly located to the right lower abdomen described as a cramping sensation. States it feels as though he may have a foodborne illness. He denies fever, chills, hematochezia, melena. He denies urinary complaints. Patient is on immunologic therapy for Crohn's. Denies daily steroid use. History of appendectomy. (Amina Solis) - Related Data Home Medications Medication Instructions Recorded Confirmed Cetirizine HCl [Zyrtec] 10 mg PO DAILY PRN 05/02/17 02/11/22 Adalimumab [Humira Pen] 40 mg INJ Q14D 10/15/21 02/11/22 Denosumab [Prolia] 60 mg SQ DIRECTED 10/15/21 02/11/22 Previous Rx's Medication Instructions Recorded Cephalexin [Keflex] 500 mg PO Q8HR #15 cap 02/11/22 Ketorolac [Toradol] 10 mg PO Q6HR PRN #15 tab 02/11/22 Tamsulosin [Flomax] 0.4 mg PO DAILY #10 cap 02/11/22 Cephalexin [Keflex] 500 mg PO Q6HR 7 Days #28 cap 03/20/24 Sulfamethox-Tmp 800-160Mg [Bactrim 1 each PO Q12HR 7 Days #14 tab 03/20/24 Ds] predniSONE [Deltasone] 40 mg PO DAILY #10 tab 12/24/24 Allergies Allergy/AdvReac Type Severity Reaction Status Date / Time ciprofloxacin [From Cipro] AdvReac Severe Unknown Verified 12/24/24 13:41 ciprofloxacin HCl AdvReac Severe Unknown Verified 12/24/24 13:41 [From Cipro] levofloxacin [From Levaquin] AdvReac Severe Unknown Verified 12/24/24 13:41 Review of Systems ROS Other: All systems not noted in ROS Statement are negative. <Nivia Blum - Last Filed: 12/24/24 13:00> ROS Other: All systems not noted in ROS Statement are negative. <Amina Solis - Last Filed: 12/24/24 18:49> ROS Other: All systems not noted in ROS Statement are negative. <Carlota Doyle - Last Filed: 12/24/24 23:20> ROS Statement: Those systems with pertinent positive or pertinent negative responses have been documented in the HPI. Past Medical History Additional Past Medical History / Comment(s): Chrohn's dx involving terminal ileum with abscess, heart murmur, lower back pain with L leg sciatica-none since September 2015, lyme's disease, normocytic anemia, peripheral neuropathy, renal stones, History of Any Multi-Drug Resistant Organisms: None Reported Past Surgical History: Orthopedic Surgery Additional Past Surgical History / Comment(s): ileocecetomy with sepsis 2016, colonoscopies, EGD, vasectomy, L sided wisdom teeth extraction. right shoulder, Past Anesthesia/Blood Transfusion Reactions: No Reported Reaction Past Psychological History: No Psychological Hx Reported Smoking Status: Former smoker Past Alcohol Use History: Rare Past Drug Use History: Marijuana - Past Family History Father Additional Family Medical History / Comment(s): Father has Crohn's dx. Mother Family Medical History: Diabetes Mellitus, Thyroid Disorder Additional Family Medical History / Comment(s): Mother is pre-diabetic and has heart valve disease,bladder dysplasia <Nivia Blum - Last Filed: 12/24/24 13:00> General Exam <Nivia Blum - Last Filed: 12/24/24 13:00> General appearance: alert, in no apparent distress Neck exam: Present: normal inspection. Absent: tenderness, meningismus, lymphadenopathy Respiratory exam: Present: normal lung sounds bilaterally. Absent: respiratory distress, wheezes, rales, rhonchi, stridor Cardiovascular Exam: Present: regular rate, normal rhythm, normal heart sounds. Absent: systolic murmur, diastolic murmur, rubs, gallop, clicks GI/Abdominal exam: Present: soft, tenderness (right lower/mid), rebound (right lower), normal bowel sounds. Absent: distended, guarding, rigid Extremities exam: Present: normal inspection, full ROM, normal capillary refill. Absent: tenderness, pedal edema, joint swelling, calf tenderness Back exam: Present: normal inspection. Absent: CVA tenderness (R), CVA ten derness (L) <Amina Solis - Last Filed: 12/24/24 18:49> - General Exam Comments Initial Comments: Visual Physical Exam Vital signs reviewed General: Well-appearing, nontoxic, no acute distress. Head: Normocephalic, atraumatic Eyes: PERRLA, EOMI ENT: Airway patent Chest: Nonlabored breathing Skin: No visual rash, normal skin tone Neuro: Alert and oriented 3 Musculoskeletal: No gross abnormalities (Nivia Blum) Course Vital Signs 12/24/24 12/24/24 13:26 20:09 Temperature 98.1 F 98.7 F Pulse Rate 70 75 Respiratory 17 18 Rate Blood Pressure 135/84 130/84 O2 Sat by Pulse 96 98 Oximetry Medical Decision Making <Nivia Blum - Last Filed: 12/24/24 13:00> - Lab Data Result diagrams: 12/24/24 15:06 12/24/24 15:06 <Amina Solis - Last Filed: 12/24/24 18:49> - Lab Data Result diagrams: 12/24/24 15:06 12/24/24 15:06 <Carlota Doyle - Last Filed: 12/24/24 23:20> - Medical Decision Making I performed the quick note portion of this chart. Electronically signed by Nivia Blum PA-C (Nivia Blum) Was pt. sent in by a medical professional or institution ([facility], [employer], urgent care, hospital, or prison...) When possible be specific @ -Referral from urgent care with concern of right lower quadrant rebound tenderness. Did you speak to anyone other than the patient for history (EMS, parent, family, police, friend...)? What history was obtained from this source @ -[No] Did you review nursing and triage notes (agree or disagree)? Why? @ -[I reviewed and agree with nursing and triage notes] Were old charts reviewed (outside hosp., previous admission, EMS record, old EKG, old radiological studies, urgent care reports/EKG's, prison records)? Report findings @ -[No old charts were reviewed] Differential Diagnosis (chest pain, altered mental status, abdominal pain women, abdominal pain men, vaginal bleeding, weakness, fever, dyspnea, syncope, headache, dizziness, GI bleed, back pain, seizure, CVA, palpatations, mental health, musculoskeletal)? @ -Differential Abdominal Pain Men: Appendicitis, cholecystitis, diverticulosis, ischemic bowel, pancreatitis, hepatitis, UTI, gastroenteritis, AAA, incarcerated hernia, bowel obstruction, constipation, inflammatory bowel, hepatitis, peptic ulcer disease, splenic infarction, perforated viscus, testicular torsion, this is not meant to be an all-inclusive list EKG interpreted by me (3pts min.). @ -None X-rays interpreted by me (1pt min.). @ -[None done] CT interpreted by me (1pt min.). @ -[None done] U/S interpreted by me (1pt. min.). @ -[None done] What testing was considered but not performed or refused? (CT, X-rays, U/S, labs )? Why? @ -[None] What meds were considered but not given or refused? Why? @ -[None] Did you discuss the management of the patient with other professionals (professionals i.e. [facility], [employer]ER, lab, RT, psych nurse, social media strategist, screw machine tool setter, teacher, supply requirements officer, watch caser)? Give summary @ -[No] Was smoking cessation discussed for >3mins.? @ -[No] Was critical care preformed (if so, how long)? @ -[No] Were there social determinants of health that impacted care today? How? (Homelessness, low income, unemployed, alcoholism, drug addiction, transportation, low edu. Level, literacy, decrease access to med. care, longterm, rehab)? @ -[No] Was there de-escalation of care discussed even if they declined (Discuss DNR or withdrawal of care, Hospice)? DNR status @ -[No] What co-morbidities impacted this encounter? (DM, HTN, Smoking, COPD, CAD, Cancer, CVA, ARF, Chemo, Hep., AIDS, mental health diagnosis, sleep apnea, morbid obesity)? @ -[None] Was patient admitted / discharged? Hospital course, mention meds given and route, prescriptions, significant lab abnormalities, going to OR and other pertinent info. @ -64 male presenting with referral from urgent care for complaint of abdominal pain. Patient was originally evaluated emergency department waiting room as a quick note where laboratory testing was ordered. On my evaluation patient is resting comfortably. Abdominal examination remarkable for mild rebound tenderness to the right lower quadrant with no signs of rigidity. Vitals are stable. Laboratory test including CBC, CMP, urinalysis unremarkable. Patient is signed out to Carlota Doyle PA-C, pending CT imaging results and disposition. Undiagnosed new problem with uncertain prognosis? @ -[No] Drug Therapy requiring intensive monitoring for toxicity (Heparin, Nitro, Insulin, Cardizem)? @ -[No] Were any procedures done? @ -[No] Diagnosis/symptom? @ -[default] Acute, or Chronic, or Acute on Chronic? @ -[default] Uncomplicated (without systemic symptoms) or Complicated (systemic symptoms)? @ -[default] Side effects of treatment? @ -[No] Exacerbation, Progression, or Severe Exacerbation? @ -[No] Poses a threat to life or bodily function? How? (Chest pain, USA, LA, pneumonia, PE, COPD, DKA, ARF, appy, cholecystitis, CVA, Diverticulitis, Homicidal, Suicid al, threat to staff... and all critical care pts) @ -[No] (Will,Amina) Was pt. sent in by a medical professional or institution ([facility], [employer], urgent care, hospital, or prison...) When possible be specific @ -No Did you speak to anyone other than the patient for history (EMS, parent, family, police, friend...)? What history was obtained from this source @ -No Did you review nursing and triage notes (agree or disagree)? Why? @ -I reviewed and agree with nursing and triage notes Were old charts reviewed (outside hosp., previous admission, EMS record, old EKG, old radiological studies, urgent care reports/EKG's, prison records)? Report findings @ -No old charts were reviewed Differential Diagnosis (chest pain, altered mental status, abdominal pain women, abdominal pain men, vaginal bleeding, weakness, fever, dyspnea, syncope, headache, dizziness, GI bleed, back pain, seizure, CVA, palpatations, mental health, musculoskeletal)? @ -Differential Abdominal Pain Men: Appendicitis, cholecystitis, diverticulosis, ischemic bowel, pancreatitis, hepatitis, UTI, gastroenteritis, AAA, incarcerated hernia, bowel obstruction, constipation, inflammatory bowel, hepatitis, peptic ulcer disease, splenic infarction, perforated viscus, testicular torsion, this is not meant to be an all-inclusive list EKG interpreted by me (3pts min.). @ -None X-rays interpreted by me (1pt min.). @ -None done CT interpreted by me (1pt min.). @ -CT revealed terminal ileitis comparable with acute Crohn's disease, no obstruction or abscess U/S interpreted by me (1pt. min.). @ -None done What testing was considered but not performed or refused? (CT, X-rays, U/S, labs)? Why? @ -None What meds were considered but not given or refused? Why? @ -None Did you discuss the management of the patient with other professionals (professionals i.e. , PA, [employer] INSTALLER, lab, RT, psych nurse, social media strategist, screw machine tool setter, teacher, supply requirements officer, watch caser)? Give summary @ -No Was smoking cessation discussed for >3mins.? @ -No Was critical care preformed (if so, how long)? @ -No Were there social determinants of health that impacted care today? How? (Homelessness, low income, unemployed, alcoholism, drug addiction, transportation, low edu. Level, literacy, decrease access to med. care, longterm, rehab)? @ -No Was there de-escalation of care discussed even if they declined (Discuss DNR or withdrawal of care, Hospice)? DNR status @ -No What co-morbidities impacted this encounter? (DM, HTN, Smoking, COPD, CAD, Cancer, CVA, ARF, Chemo, Hep., AIDS, mental health diagnosis, sleep apnea, morbid obesity)? @ -None Was patient admitted / discharged? Hospital course, mention meds given and route, prescriptions, significant lab abnormalities, going to OR and other pertinent info. @ -Discharge. 64-year-old male present with history of Crohn's presenting for abdominal pain. Abdominal examination remarkable for mild rebound tenderness to the right lower quadrant with no signs of rigidity. Patient is afebrile, well- appearing, no acute distress. Laboratory studies unremarkable, white blood cell count normal at 10. CT abdomen pelvis reveals terminal ileitis comparable with acute Crohn's disease, no obstruction or abscess. Results discussed with patient. I will provide an outpatient prescription for prednisone. Discussed appropriate return precautions and follow-up care. Case was discussed with the ED attending Dr. Jerez. Undiagnosed new problem with uncertain prognosis? @ -No Drug Therapy requiring intensive monitoring for toxicity (Heparin, Nitro, Insulin, Cardizem)? @ -No Were any procedures done? @ -No Diagnosis/symptom? @ -Acute Crohn's flare Acute, or Chronic, or Acute on Chronic? @ -Acute Uncomplicated (without systemic symptoms) or Complicated (systemic symptoms)? @ -Uncomplicated Side effects of treatment? @ -No Exacerbation, Progression, or Severe Exacerbation? @ -No Poses a threat to life or bodily function? How? (Chest pain, USA, LA, pneumonia, PE, COPD, DKA, ARF, appy, cholecystitis, CVA, Diverticulitis, Homicidal, Suicidal, threat to staff... and all critical care pts) @ -Not at this time (Carlota Doyle) - Lab Data Lab Results 12/24/24 12/24/24 12/24/24 Range/Units 13:45 15:06 15:06 WBC 10.3 (3.8-10.6) k/uL RBC 5.20 (4.30-5.90) m/uL Hgb 15.0 (13.0-17.5) gm/dL Hct 46.5 (39.0-53.0) % MCV 89.4 (80.0-100.0) fL MCH 28.8 (25.0-35.0) pg MCHC 32.2 (31.0-37.0) g/dL RDW 12.6 (11.5-15.5) % Plt Count 248 (150-450) k/uL MPV 6.8 Neutrophils % 59 % Lymphocytes % 33 % Monocytes % 4 % Eosinophils % 2 % Basophils % 0 % Neutrophils # 6.1 (1.3-7.7) k/uL Lymphocytes # 3.4 (1.0-4.8) k/uL Monocytes # 0.4 (0-1.0) k/uL Eosinophils # 0.2 (0-0.7) k/uL Basophils # 0.0 (0-0.2) k/uL Sodium 139 (137-145) mmol/L Potassium 4.6 (3.5-5.1) mmol/L Chloride 105 (98-107) mmol/L Carbon Dioxide 28 (22-30) mmol/L Anion Gap 6 mmol/L BUN 12 (9-20) mg/dL Creatinine 1.10 (0.66-1.25) mg/dL Est GFR (CKD-EPI)AfAm 82 (>60 ml/min/1.73 sqM) Est GFR (CKD-EPI)NonAf 71 (>60 ml/min/1.73 sqM) Glucose 90 (74-99) mg/dL Plasma Lactic Acid Harpal (0.7-2.0) mmol/L Calcium 9.3 (8.4-10.2) mg/dL Total Bilirubin 0.9 (0.2-1.3) mg/dL AST 28 (17-59) U/L ALT 23 (4-49) U/L Alkaline Phosphatase 65 (38-126) U/L Total Protein 7.3 (6.3-8.2) g/dL Albumin 4.4 (3.5-5.0) g/dL Amylase 115 H (30-110) U/L Lipase 188 (23-300) U/L Urine Color Colorless Urine Appearance Clear (Clear) Urine pH 5.0 (5.0-8.0) Ur Specific [place] 1.014 (1.001-1.035) Urine Protein Negative (Negative) Urine Glucose (UA) Negative (Negative) Urine Ketones Negative (Negative) Urine Blood Trace H (Negative) Urine Nitrite Negative (Negative) Urine Bilirubin Negative (Negative) Urine Urobilinogen <2.0 (<2.0) mg/dL Ur Leukocyte Esterase Negative (Negative) Urine RBC 1 (0-5) /hpf Urine WBC <1 (0-5) /hpf Urine Mucus Rare H (None) /hpf 12/24/24 Range/Units 15:06 WBC (3.8-10.6) k/uL RBC (4.30-5.90) m/uL Hgb (13.0-17.5) gm/dL Hct (39.0-53.0) % MCV (80.0-100.0) fL MCH (25.0-35.0) pg MCHC (31.0-37.0) g/dL RDW (11.5-15.5) % Plt Count (150-450) k/uL MPV Neutrophils % % Lymphocytes % % Monocytes % % Eosinophils % % Basophils % % Neutrophils # (1.3-7.7) k/uL Lymphocytes # (1.0-4.8) k/uL Monocytes # (0-1.0) k/uL Eosinophils # (0-0.7) k/uL Basophils # (0-0.2) k/uL Sodium (137-145) mmol/L Potassium (3.5-5.1) mmol/L Chloride (98-107) mmol/L Carbon Dioxide (22-30) mmol/L Anion Gap mmol/L BUN (9-20) mg/dL Creatinine (0.66-1.25) mg/dL Est GFR (CKD-EPI)AfAm (>60 ml/min/1.73 sqM) Est GFR (CKD-EPI)NonAf (>60 ml/min/1.73 sqM) Glucose (74-99) mg/dL Plasma Lactic Acid Harpal 0.7 (0.7-2.0) mmol/L Calcium (8.4-10.2) mg/dL Total Bilirubin (0.2-1.3) mg/dL AST (17-59) U/L ALT (4-49) U/L Alkaline Phosphatase (38-126) U/L Total Protein (6.3-8.2) g/dL Albumin (3.5-5.0) g/dL Amylase (30-110) U/L Lipase (23-300) U/L Urine Color Urine Appearance (Clear) Urine pH (5.0-8.0) Ur Specific [place] (1.001-1.035) Urine Protein (Negative) Urine Glucose (UA) (Negative) Urine Ketones (Negative) Urine Blood (Negative) Urine Nitrite (Negative) Urine Bilirubin (Negative) Urine Urobilinogen (<2.0) mg/dL Ur Leukocyte Esterase (Negative) Urine RBC (0-5) /hpf Urine WBC (0-5) /hpf Urine Mucus (None) /hpf Disposition <Nivia Blum - Last Filed: 12/24/24 13:00> <Amina Solis - Last Filed: 12/24/24 18:49> Is patient prescribed a controlled substance at d/c from ED?: No Time of Disposition: 19:50 <Carlota Doyle - Last Filed: 12/24/24 23:20> Clinical Impression: Crohn's disease of ileum Disposition: HOME SELF-CARE Condition: Stable Instructions (If sedation given, give patient instructions): Crohn Disease (ED) Additional Instructions: Take steroids once daily for 7 days. Please follow-up with Dr. Escoto next week for reevaluation. Please return to the Emergency Department if symptoms worsen, you have a fever, or any other concerns. Prescriptions: predniSONE [Deltasone] 40 mg PO DAILY #10 tab Referrals: Efra Edwards MD [Primary Care Provider] - 1-2 days
[2024-12-24 14:01] LABS: Appearance,Urine Clear (Clear); Bilirubin,Urine Negative (Negative); Blood,Urine Trace (Negative); Color,Urine Colorless; Glucose,Urine (UA) Negative (Negative); Ketones,Urine Negative (Negative); Leukocyte Esterase,Urine Negative (Negative); Mucus,Urine Rare /hpf; Nitrite,Urine Negative (Negative); Protein,Urine Negative (Negative); RBC,Urine 1 /hpf (0-5); Specific Gravity,Urine 1.014 (1.001-1.035); Urobilinogen,Urine <2.0 mg/dL (<2.0); WBC,Urine <1 /hpf (0-5)
[2024-12-24 15:15] LABS: Basophils % (A) 0 %; Eosinophils # (A) 0.2 k/uL (0-0.7); Eosinophils % (A) 2 %; HCT 46.5 % (39.0-53.0); Lymphocytes # (A) 3.4 k/uL (1.0-4.8); Lymphocytes % (A) 33 %; MCH 28.8 pg (25.0-35.0); MCHC 32.2 g/dL (31.0-37.0); MCV 89.4 fL (80.0-100.0); Mean Platelet Volume 6.8; Monocytes # (A) 0.4 k/uL (0-1.0); Monocytes % (A) 4 %; Neutrophils # (A) 6.1 k/uL (1.3-7.7); Neutrophils % (A) 59 %; Platelet Count 248 k/uL (150-450); RDW 12.6 % (11.5-15.5); WBC 10.3 k/uL (3.8-10.6)
[2024-12-24 15:32] LABS: ALT 23 U/L (4-49); AST 28 U/L (17-59); African American GFR (CKD) 82 (>60 ml/min/1.73 sqM); Albumin 4.4 g/dL (3.5-5.0); Alkaline Phosphatase 65 U/L (38-126); Amylase 115 U/L (30-110); Anion Gap 6 mmol/L; Blood Urea Nitrogen 12 mg/dL (9-20); Calcium 9.3 mg/dL (8.4-10.2); Carbon Dioxide 28 mmol/L (22-30); Chloride 105 mmol/L (98-107); Glucose 90 mg/dL (74-99); Lipase 188 U/L (23-300); Non-African American GFR(CKD) 71 (>60 ml/min/1.73 sqM); Potassium 4.6 mmol/L (3.5-5.1); Sodium 139 mmol/L (137-145); Total Bilirubin 0.9 mg/dL (0.2-1.3); Total Protein 7.3 g/dL (6.3-8.2)
--- NOTE | 2024-12-24 19:05 | CT ---
EXAMINATION TYPE: CT abdomen pelvis w con DATE OF EXAM: 12/24/2024 6:46 PM COMPARISON: CT abdomen pelvis most recent from 03/20/2024. CLINICAL INDICATION: Male, 64 years old with history of ab pain, hx crohns, diarrhea; Pt is coming in for pain in his lower abdomen, pt states he was seen at urgent care and was sent for ct because of t he rebound pin tht he is having in his RLQ. Hx of Chrohns. TECHNIQUE: Axial CT abdomen pelvis w con;Sagittal and coronal reformats were created on a separate w orkstation. Contrast used:100ml mL of Isovue 300 with IV Contrast, (none if empty) Oral contrast used: with Oral Contrast (none if empty) CT DLP: 829.3 mGycm, Automated exposure control for dose reduction was used. FINDINGS: LOWER CHEST: Unremarkable ABDOMEN LIVER: Unremarkable GALLBLADDER AND BILE DUCTS: Unremarkable. PANCREAS: Unremarkable. SPLEEN: Unremarkable. ADRENAL GLANDS: Unremarkable. KIDNEYS AND URETERS: No evidence of hydronephrosis or renal calculus. The ureters are unremarkable. PELVIS BLADDER: No evidence for wall thickening or mass given limitations of exam. REPRODUCTIVE: Prostate is enlarged in size measuring 5.5 cm in transverse dimension. ABDOMEN & PELVIS STOMACH AND BOWEL: No evidence of bowel obstruction. Postsurgical changes to the colon. Impression wa ll thickening of the terminal ileum measuring up to 5 mm with hyperemia. No organizing fluid collecti on or abscess at this time. No fistula visualized. PERITONEUM/RETROPERITONEUM: No evidence of pneumoperitoneum or free fluid. VASCULATURE: No evidence of aortic aneurysm. MUSCULOSKELETAL: No acute osseous abnormalities. Mild disc degeneration changes are present throughou t the thoracolumbar spine. LYMPH NODES: No gross evidence for lymphadenopathy. SOFT TISSUE/ABDOMINAL WALL: Unremarkable IMPRESSION: Terminal ileitis compatible with active Crohn's disease. No evidence for obstruction nor abscess. Pos tsurgical changes to the terminal ileum. [facility], , 12/24/2024 7:02 PM
[2024-12-24 20:10] VITALS: BP 130/84; PULSE 75; RESP 18; TEMP 98.7
== END 2024-12-24 20:10 | disposition home or self-care (01) ==
LOC: EC 12:49
DX: K50.00 Crohn's disease of small intestine without complications (principal); Z87.891 Personal history of nicotine dependence; Z88.1 Allergy status to other antibiotic agents
CPT/HCPCS: 36415; 80053; 82150; 83605; 83690; 85025; 81001; 74177; 99284; Q9967

== ENCOUNTER → 2024-12-30 | Outpatient (CLI) | payer BC ==
[2024-12-30 15:17] LABS: Hepatitis B Surface Antigen Nonreactive (Nonreactive)
== END | disposition home or self-care (01) ==
LOC: LABWHC1 08:49
PROVIDERS: ATTEND Internal Medicine Gastroenterology
DX: K50.90 Crohn's disease, unspecified, without complications (principal)
CPT/HCPCS: 36415; 86480; 86704; 87340

== ENCOUNTER → 2025-02-14 | Outpatient (CLI) | payer BC ==
--- NOTE | 2025-02-14 09:06 | CT ---
EXAMINATION TYPE: CT chest without contrast CT angio chest DATE OF EXAM: 02/14/2025 8:45 AM COMPARISON: 01/29/2024 CLINICAL INDICATION: Male, 64 years old with history of I71.20 THORACIC AORTIC ANEURYSM, WITHOUT RUPT URE; thoracic aneurysm TECHNIQUE/CONTRAST: CTA scan of the thorax is performed without and with IV Contrast, patient injected with 100 mL of Iso brayden 370, 3-D reconstructions generated on the dedicated independent workstation. CT DLP: 573.8 mGycm, Automated exposure control for dose reduction was used. FINDINGS: Heart is normal size with trace pericardial fluid. Prominent proximal LAD coronary artery calcificati ons are present. Mild aortic valve calcifications. Borderline ectasia aortic root at 3.5 cm unchanged. Mild aneurysm ascending aorta 4.0 cm, unchanged. 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 No evidence for acute intramural hematoma or aortic dissection. No thoracic lymphadenopathy by CT size criteria. Hazy dependent atelectasis in the lungs. Mild to moderate emphysematous change. Mild diffuse bronchia l wall thickening. Stable 9 mm subpleural pulmonary nodule posterior left lower lobe. Visualized upper abdomen shows punctate nonobstructive 3 mm and smaller bilateral renal calculi. Tomas ical defects upper pole right kidney are unchanged suggesting prior vascular or infectious insults. Bones: Scattered mild degenerative disc disease. Accentuated upper thoracic kyphosis. IMPRESSION: 1. Stable mild aneurysm ascending aorta 4.0 cm. Small LAD coronary artery calcifications. 2. COPD with mild to moderate emphysema and stable 9 mm left lower lobe pulmonary nodule suggesting a benign etiology. 3. Punctate bilateral nonobstructive renal calculi partially visualized. [facility], , 02/14/2025 9:04 AM
== END | disposition home or self-care (01) ==
LOC: RADCTMAIN 08:04
PROVIDERS: ATTEND Internal Medicine Interventional Cardiology
DX: I71.20 Thoracic aortic aneurysm, without rupture, unspecified (principal); J44.9 Chronic obstructive pulmonary disease, unspecified; J43.9 Emphysema, unspecified; N20.0 Calculus of kidney; I25.10 Atherosclerotic heart disease of native coronary artery without angina pectoris
CPT/HCPCS: 71275; Q9967